=== PATIENT | male | born 1965 | race Caucasian/White ===

== ENCOUNTER → 2020-07-22 | Outpatient (CLI) | payer BC ==
--- NOTE | 2020-07-23 07:33 | CT ---
"EXAMINATION TYPE: CT abdomen wo con DATE OF EXAM: 07/22/2020 HISTORY: possible renal stones CT DLP: 362 mGycm. Automated Exposure Control for Dose Reduction was Utilized. TECHNIQUE: CT scan of the abdomen is performed without oral or IV contrast. Imaging includes the ent kenia pelvis despite only being ordered as an abdomen CT. COMPARISON: NONE FINDINGS: Within the limitations of a non-contrast study, the following observations are made. LUNG BASES: Mild left basilar linear scarring. Some coronary artery calcification is appreciated. LIVER/GB: No significant abnormality is appreciated. PANCREAS: No significant abnormality is seen. SPLEEN: No significant abnormality is seen. ADRENALS: No significant abnormality is seen. KIDNEYS: Right kidney shows cluster of roughly 5 calculi lower pole level measuring up to 12 mm long axis axial image 61. Left kidney shows approximately 60 calculi of varying size and shape including a dominant 19 mm calculus near upper pole calyx pelvic junction axial image 41. There is additional 14 mm calculus in proximal left ureter causing severe left-sided hydronephrosis. No right-sided hydrone phrosis is present. No intraluminal calculus in the poorly distended bladder. BOWEL: Incidental normal-appearing of appendix. GENITAL ORGANS: Prominent posterior left-sided mid zone calcifications an bilateral diffuse apical ca lcification in prostate gland measured upper limits of normal in size. LYMPH NODES: No greater than 1cm abdominal or pelvic lymph nodes are appreciated. OSSEOUS STRUCTURES: [id number] multilevel anterior spurring in the lumbar spine. OTHER: Moderate calcified plaque of the distal abdominal aorta extends into iliac branch vessels. Lenard e ectasia is present. No greater than 3.0 cm aneurysm. IMPRESSION: Significant bilateral nephrolithiasis. In addition there is 14 mm calculus proximal left ureter causing severe left-sided hydronephrosis. Urology follow-up advised. A Yellow level critical message alert has been initiated for Federica Ann MD via the [employer] | Critical Results System on 07/23/2020 7:30 AM. This message alert has been sent to Federica preston MD via the preferences provided by the clinician for the receipt of Radiology Critical Findings. Romulo essage ID [id number]."
== END | disposition home or self-care (01) ==
LOC: RADCTMAIN 16:28
PROVIDERS: ATTEND Internal Medicine
DX: N13.2 Hydronephrosis with renal and ureteral calculous obstruction (principal)
CPT/HCPCS: 74150

== ENCOUNTER → 2020-08-26 | Outpatient (CLI) | payer BC ==
[2020-08-26 12:43] LABS: Basophils # (A) 0.1 k/uL (0-0.2); Basophils % (A) 1 %; Eosinophils # (A) 0.2 k/uL (0-0.7); Eosinophils % (A) 2 %; HCT 47.2 % (39.0-53.0); HGB 16.1 gm/dL (13.0-17.5); Lymphocytes # (A) 2.9 k/uL (1.0-4.8); Lymphocytes % (A) 30 %; MCH 31.5 pg (25.0-35.0); MCV 92.5 fL (80.0-100.0); Mean Platelet Volume 7.8; Monocytes # (A) 0.8 k/uL (0-1.0); Monocytes % (A) 8 %; Neutrophils # (A) 5.3 k/uL (1.3-7.7); Neutrophils % (A) 56 %; Platelet Count 219 k/uL (150-450); RDW 12.7 % (11.5-15.5); WBC 9.5 k/uL (3.8-10.6)
[2020-08-26 13:02] LABS: African American GFR (CKD) >90 (>60 ml/min/1.73 sqM); Anion Gap 7 mmol/L; Blood Urea Nitrogen 14 mg/dL (9-20); Calcium 9.7 mg/dL (8.4-10.2); Carbon Dioxide 27 mmol/L (22-30); Chloride 104 mmol/L (98-107); Glucose 101 mg/dL (74-99); Non-African American GFR(CKD) >90 (>60 ml/min/1.73 sqM); Potassium 4.1 mmol/L (3.5-5.1); Sodium 138 mmol/L (137-145)
[2020-08-26 13:21] LABS: Appearance,Urine Clear (Clear); Bilirubin,Urine Negative (Negative); Blood,Urine Small (Negative); Color,Urine Yellow; Glucose,Urine (UA) Negative (Negative); Ketones,Urine Negative (Negative); Leukocyte Esterase,Urine Moderate (Negative); Mucus,Urine Rare /hpf; Nitrite,Urine Negative (Negative); PH, Urine 5.5 (5.0-8.0); Protein,Urine Negative (Negative); RBC,Urine 15 /hpf (0-5); Squamous Epithelial Cell,Urine <1 /hpf (0-4); Urobilinogen,Urine <2.0 mg/dL (<2.0); WBC,Urine 21 /hpf (0-5)
== END | disposition home or self-care (01) ==
LOC: LABPAT 10:32
PROVIDERS: ATTEND Urology
DX: Z01.818 Encounter for other preprocedural examination (principal); I10 Essential (primary) hypertension; N20.0 Calculus of kidney; R31.29 Other microscopic hematuria
CPT/HCPCS: 36415; 80048; 81001; 85025; 86850; 86900; 86901; 87086; 93005

== ENCOUNTER 2020-09-02 10:35 | Observation (INO) | payer BC ==
[2020-08-22 14:53] VITALS: BMI 25.2
[~2020-09-02 10:35] MED LIST: DEXAMETHASONE SOD PHOSPHATE 4 MG/ML 1 ML VIAL IV ONE; HYDROmorphone 0.5 MG/0.5 ML SYRINGE IVP PRN; LIDOCAINE 1% (10MG/ML) FOR IV START INTRADERMA PRN; ONDANSETRON 4 MG/2 ML VIAL IVP ONE; SCOPOLAMINE 1.5MG/72HR PATCH TRANSDERM ONE
--- NOTE | 2020-09-02 10:56 | XR ---
KUB HISTORY: Kidney stone Frontal KUB and [address] 07/22/2020 Multiple stones are present within the bilateral kidneys and likely the proximal left ureter region a s noted on prior CT, largest in the right kidney measures approximately 17 mm, largest in the proxima l left ureter measures proximate 16 mm. The upper pole region of the left kidney shows a desiccation measuring roughly 2 cm, there are at least 3 additional calcifications at the upper pole the left kid jaguar, too calcifications in the proximal left ureter are suspected, at least 3 calcifications in the r ight kidney. Prostate calcifications present. There are dense atherosclerotic calcifications noted in cidentally. IMPRESSION: Bilateral nephrolithiasis, proximal left ureterolithiasis.
[2020-09-02] MEDS: LACTATED RINGERS 1,000 ML IV SCH (11:30)
--- NOTE | 2020-09-02 11:55 | P.HPIHPCON ---
History of Present Illness H&P Date: 09/02/20 Chief Complaint: Kidney stones This is a 55-year-old male with history of bilateral renal stones. Of note he has a 1.9 cm left renal stone and 1.6 cm left ureteral stone. In addition to multiple smaller calculi on the left. Discussed the with him given his significant stone burden I recommend we proceed with percutaneous nephrolithotomy. Discussed with him the risk which includes but not limited to bleeding, infection, injury to the kidney, injury to the ureter, injury to nearby organs. Discussed with him given his significant stone burden he might require a second procedure to completely clear his stones on the left. He understood all the risk and agreed to proceed Consent for Procedure: I have explained the operation/procedure to the patient, including the risks, benefits, side effects, alternative therapies (including not receiving the proposed treatment or service), the likelihood of the patient achieving his/her goals, and potential recuperation problems for the procedure/sedation/analgesia, as well as any blood products, if indicated. I also explained to the patient the risks, benefits and side effects of the alternatives, as well as the risks related to not receiving the proposed procedure, care, treatment, or services. Past Medical History Past Medical History: Hyperlipidemia, Hypertension Additional Past Medical History / Comment(s): kidney stones History of Any Multi-Drug Resistant Organisms: None Reported Additional Past Surgical History / Comment(s): oral sx Past Anesthesia/Blood Transfusion Reactions: No Reported Reaction Smoking Status: Current every day smoker Medications and Allergies Home Medications Medication Instructions Recorded Confirmed Type Aspirin [Adult Low Dose Aspirin EC] 81 mg PO DAILY 08/22/20 08/22/20 History Atorvastatin [Lipitor] 10 mg PO HS 08/22/20 08/22/20 History atenoloL [Atenolol] 25 mg PO QAM 08/22/20 08/22/20 History Allergies Allergy/AdvReac Type Severity Reaction Status Date / Time No Known Allergies Allergy Verified 08/22/20 14:30 Surgical - Exam Vital Signs Temp Pulse Resp BP Pulse Ox 97.6 F 59 L 20 133/71 98 09/02/20 11:05 09/02/20 11:05 09/02/20 11:05 09/02/20 11:05 09/02/20 11:05 - General no distress, no pain - Eyes PERRL, normal ocular movement - ENT normal nares, normal mucosa - Respiratory normal expansion, normal respiratory effort - Abdomen Abdomen: soft, non tender - Psychiatric oriented to time, oriented to person, oriented to place Assessment and Plan Assessment: 55-year-old male with history of left-sided renal and ureteral stone -Or for percutaneous nephrolithotomy on the left
[2020-09-02] MEDS ORDERED: IOPAMIDOL-370 50ML BTL MISCELLANE ONE ×2 (12:21→15:17)
[2020-09-02] MEDS ORDERED: ACETAMINOPHEN TAB 325 MG TAB PO PRN (12:25)
[2020-09-02] MEDS ORDERED: MAG HYDROX/AL HYDROX/SIMETH 30 ML CUP PO PRN (12:25)
[2020-09-02] MEDS ORDERED: ONDANSETRON 4 MG/2 ML VIAL IVP PRN (12:25)
[2020-09-02] MEDS ORDERED: HYDROcodone/APAP 5-325MG 1 EACH TAB PO PRN (12:27)
[2020-09-02] MEDS ORDERED: LIDOCAINE 1% INJ 10MG/ML (20 ML MDV) ONE (12:52)
[2020-09-02] MEDS ORDERED: PROPOFOL 10 MG/ML 20 ML VIAL IV ONE (12:52)
[2020-09-02] MEDS ORDERED: GLYCOPYRROLATE 0.2 MG/ML 2 ML VIAL ONE (12:52)
[2020-09-02] MEDS ORDERED: MIDAZOLAM 2 MG/2 ML VIAL ONE (12:52)
[2020-09-02] MEDS ORDERED: ROCURONIUM 10 MG/ML (10 ML VIAL) IV ONE (12:52)
[2020-09-02] MEDS ORDERED: HYDROmorphone (PF) 1 MG/ML ONE (12:52)
[2020-09-02] MEDS ORDERED: fentaNYL (PF) 50 MCG/ML 2 ML AMP ONE (12:52)
[2020-09-02] MEDS ORDERED: ePHEDrine SULFATE/0.9% NACL/PF 50 MG/5 ML SYRINGE IV ONE (12:52)
[2020-09-02] MEDS ORDERED: NEOSTIGMINE 1 MG/ML 10 ML VIAL ONE (12:52)
[2020-09-02] MEDS ORDERED: SUCCINYLCHOLINE CHLORIDE 100 MG/5 ML SYR IV ONE (12:52)
[2020-09-02] MEDS ORDERED: BUPIVACAINE (PF) 0.5% 30 ML VIAL MISCELLANE ONE (15:00)
[2020-09-02] MEDS ORDERED: LACTATED RINGERS 1,000 ML IV ONE ×2 (15:10→17:25)
--- NOTE | 2020-09-02 17:48 | P.OP ---
Date of Procedure: 09/02/20 Preoperative Diagnosis: Left renal/ureteral stone Postoperative Diagnosis: Same Procedure(s) Performed: Cystoscopy, left ureteral catheterization, retrograde pyelogram, percutaneous nephrolithotomy, antegrade stent placement and nephrostomy tube placement Implants: 6-Senegalese by 28 cm stent Anesthesia: DALE Surgeon: Donald Mckeon Estimated Blood Loss (ml): 50 Pathology: other (Left renal/ureteral stone) Condition: stable Disposition: PACU Indications for Procedure: This is a 55-year-old male with history of bilateral renal stones. Of note he has a 1.9 cm left renal stone and 1.6 cm left ureteral stone. In addition to multiple smaller calculi on the left. Discussed the with him given his significant stone burden I recommend we proceed with percutaneous nephrolithotomy. Discussed with him the risk which includes but not limited to bleeding, infection, injury to the kidney, injury to the ureter, injury to nearby organs. Discussed with him given his significant stone burden he might require a second procedure to completely clear his stones on the left. He understood all the risk and agreed to proceed Operative Findings: Stone impacted in the left proximal ureter, large stones in the left upper pole, multiple smaller stones throughout the kidney Description of Procedure: The patient was brought to the operating room, general anesthesia was induced. He was prepped and draped in sterile fashion and placed in dorsal lithotomy position. Cystoscopy fitted with a 21-Senegalese sheath was inserted per urethra, cystoscopy was performed showed no abnormality within the bladder. Attention was then carried to the left ureteral orifice which was intubated with a sensor wire. I then advanced a sensor wire but could not advance it past the distal end of the stone multiple attempts was performed to try to advance the wire past the stone but the wire could not make the turn past the stone. At this time I attempted to advance a angled glide, but was still not able to advance the wire past the stone. At this time the wire was withdrawn and a 6-Senegalese open-ended catheter was inserted. Retrograde Polygram was performed which showed a mid ureteral stricture with dilation proximal to that, and then minimal contrast was seen past the stone. At this time a wire was advanced through the catheter up into the level of the stone and a 8-Senegalese occlusion balloon was passed over the wire, but resistance was met at the stricture I was not able to advance the catheter past the stricture. At this time the catheter was was maintained at the mid ureter. A 16-Senegalese Valdez catheter was placed and the catheter was secured to the Valdez. The patient was then positioned in prone, adequate padding was placed. Access was obtained by Mook Sellers see his part of dictation for that part of the case. After obtaining access A 0.035 sensor wire was advanced through the nephrostomy tube, the wire could not be advanced past upper calyx stone. At this time the sensor wire was curled in the upper pole. Next the 8-10 dilators was advanced over the sensor wire. an extra stiff wire was advanced through the ten dilator and into the upper pole. The tract was dilated using the balloon dilators, Next a 24-Senegalese access sheath was advanced over the balloon. The balloon was removed with the sheath in place. Next a rigid nephroscope was inserted. Large stone was encountered in the upper pole. This was fragmented using the ultrasound lithotripter, sizable fragments were removed and sent analysis. Multiple additional smaller stones were encountered throughout the kidney does were removed. At this time the rigid nephroscope was withdrawn and a flexible cystoscope was inserted through the sheath, at this time the UPJ was identified and the scope was advanced into the proximal ureter, the stone was visualized and it was impacted. With moderate difficulty I was able to advance a sensor wire past the stone and down into the ureter and into the bladder. Next using the holmium laser the stone was fragmented into small fragments, of note there was significant edema at the site of stone impaction in the ureter was edematous and scarred secondary to stone. Sizable fragments were removed. Next I attempted to advance the scope past the area of impaction distally but I was not able to advance the scope. At this time the the flexibile cystoscope was withdrawn, and the rigid nephroscope was inserted, repeat renoscopy showed no sizable fragments or injury to the kidney. Next a 6- Senegalese by 28 cm stent was passed over the wire, the the distal curl was visualized on fluoroscopy in the bladder, the proximal curl was visualized using the nephroscope. Next a second wire was placed into the kidney, and a 10- Senegalese nephrostomy tube was placed. The nephrostomy tube was secured to the skin using 3-0 nylon. An additional 3-0 Vicryl was placed in the skin to close the skin defect. A 15 mL's of local anesthetic was infiltrated. Antegrade nephrostogram was performed at the end of the case which showed no evidence of contrast extravasation or any additional filling defect, additionally no radiopaque densities were visualized. At this point the patient was placed back in supine he was awakened from anesthesia and taken to recovery in stable condition
[2020-09-02] MEDS: DEXTROSE 5%-0.45% NACL 1,000 ML IV SCH ×2 (18:21→19:21)
[2020-09-02] MEDS: HEPARIN SODIUM,PORCINE 5,000 UNIT/ML 1 ML VIAL SQ SCH (18:37)
[2020-09-02] MEDS: KETOROLAC 15 MG/ML 1 ML VIAL IVP SCH (19:20)
[2020-09-02] MEDS ORDERED: ATORVASTATIN 10 MG TAB PO SCH (21:00)
[2020-09-03] MEDS: KETOROLAC 15 MG/ML 1 ML VIAL IVP SCH ×3 (00:17→11:52)
[2020-09-03] MEDS: HEPARIN SODIUM,PORCINE 5,000 UNIT/ML 1 ML VIAL SQ SCH ×2 (00:18→09:02)
[2020-09-03] MEDS: LACTATED RINGERS 1,000 ML IV SCH (04:23)
[2020-09-03] MEDS: DEXTROSE 5%-0.45% NACL 1,000 ML IV SCH (04:24)
[2020-09-03 06:50] LABS: HCT 39.8 % (39.0-53.0); HGB 13.9 gm/dL (13.0-17.5); MCH 31.9 pg (25.0-35.0); MCHC 34.8 g/dL (31.0-37.0); MCV 91.7 fL (80.0-100.0); Platelet Count 170 k/uL (150-450); RBC 4.35 m/uL (4.30-5.90); RDW 12.7 % (11.5-15.5); WBC 15.1 k/uL (3.8-10.6)
--- NOTE | 2020-09-03 07:18 | FL ---
EXAMINATION TYPE: FL Perc Nephrostomy New Access, FL urography retrograde DATE OF EXAM: 09/02/2020 COMPARISON: CT 07/22/2020 HISTORY: Hydronephrosis, ureteral obstruction or nephrolithiasis. PROCEDURE: Maximal barrier technique was utilized, hand hygiene obtained with soap and water and alcohol-based h and rub. The skin overlying the left kidney was localized using fluoroscopy and the overlying skin p repped and draped. Skin luzma was made with a scalpel. Access was attempted under fluoroscopy, follow ing placement of a ureteral occlusion balloon by the referring clinician and instillation of air in t he renal collecting system with a 21-gauge needle without success, ultrasound was called to the room and ultrasound guidance was used with maximal barrier technique to access the posterior upper pole th e left kidney. A 0.018 inch wire was advanced. The access site was dilated , access site was upsize d, safety wire deployed and subsequently a sheath was advanced following dilation with balloon along the tract. The patient underwent nephrolithotomy by the referring clinician. The patient remained i n stable condition without complication. The patient was discharged to observation in the care of an esthesia. 31 minutes 20 seconds fluoroscopy time, 4 images document the procedure IMPRESSION: STATUS POST NEPHROSTOMY PLACEMENT FOR NEPHROLITHOTOMY WITH FLUOROSCOPIC GUIDANCE. THIS PROCEDURE PER FORMED BY THE UNDERSIGNED.
--- NOTE | 2020-09-03 08:46 | P.DS ---
Providers Date of admission: 09/03/20 06:03 Expected date of discharge: 09/03/20 Attending physician: Donald Mckeon MD Primary care physician: Seth Hobbs [facility] Course: On the day of admission, the patient underwent a left percutaneous nephrolithotomy. The perioperative course was unremarkable. On the first postoperative day, he was tolerating diet and stated that his pain was controlled. He was afebrile with stable vital signs. The Valdez catheter was draining clear yellow urine. The left nephrostomy tube was draining urine which was only faintly blood-tinged. Procedures: Left PCNL on 09/02/2020. Patient Condition at Discharge: Good Plan - Discharge Summary Discharge Rx Participant: No New Discharge Prescriptions: New HYDROcodone/APAP 5-325MG [[place] 5-325] 1 - 2 tab PO Q4HR PRN #10 tab PRN Reason: Moderate To Severe Pain No Action atenoloL [Atenolol] 25 mg PO QAM Atorvastatin [Lipitor] 10 mg PO HS Aspirin [Adult Low Dose Aspirin EC] 81 mg PO DAILY Discharge Medication List Aspirin [Adult Low Dose Aspirin EC] 81 mg PO DAILY 08/22/20 [History] Atorvastatin [Lipitor] 10 mg PO HS 08/22/20 [History] atenoloL [Atenolol] 25 mg PO QAM 08/22/20 [History] HYDROcodone/APAP 5-325MG [[place] 5-325] 1 - 2 tab PO Q4HR PRN #10 tab 09/03/20 [Rx] Follow up Appointment(s)/Referral(s): Donald Mckeon MD [STAFF PHYSICIAN] - 1 Week Activity/Diet/Wound Care/Special Instructions: Discharge home with nephrostomy tube. Instruct patient to empty drainage bag. Diet as tolerated. Drink plenty of fluids. Discharge Disposition: HOME SELF-CARE
[2020-09-03] MEDS ORDERED: atenoloL 25 MG TAB PO SCH (09:00)
[2020-09-03 09:54] LABS: Anion Gap 9.8 mmol/L (4.00-12.00); BUN/Creat Ratio 16.67 Ratio (12.00-20.00); Calcium 8.7 mg/dL (8.7-10.3); Carbon Dioxide 23.2 mmol/L (21.6-31.8); Non-African American GFR(CKD) 95.8 (60.0-200.0); Potassium 3.5 mmol/L (3.5-5.5)
[2020-09-03 14:57] VITALS: BP 159/88; PULSE 58; RESP 20; TEMP 98
--- NOTE | 2020-09-04 13:16 | US ---
Ultrasound guidance utilized for percutaneous nephrostomy access, see dictated report 09/02/2020
== END 2020-09-03 16:24 | disposition home or self-care (01) ==
LOC: OR 10:35 → 4SSUR 17:53 → OR 09-03 06:19
PROVIDERS: ADMIT Urology; ATTEND Urology
DX: N20.2 Calculus of kidney with calculus of ureter (principal); N13.5 Crossing vessel and stricture of ureter without hydronephrosis; E78.5 Hyperlipidemia, unspecified; I10 Essential (primary) hypertension; K08.89 Other specified disorders of teeth and supporting structures; F17.210 Nicotine dependence, cigarettes, uncomplicated; K21.9 Gastro-esophageal reflux disease without esophagitis; Z87.442 Personal history of urinary calculi; Z98.890 Other specified postprocedural states; Z79.82 Long term (current) use of aspirin; Z79.899 Other long term (current) drug therapy
CPT/HCPCS: 52005; 50080; 80048; 85027; 82365; 74420; 50432; 74018; 76942; G0378; C2625; C1769 ×6; C2628 ×2; C1729 ×2; C1758; C1894; J2250; J1644; J1100; J2710; J2405; J2001; J3010; J1170; J1885 ×2; J0330; J2704; Q9967; 86850; 86900; 86901

== ENCOUNTER → 2020-09-13 | Outpatient (CLI) | payer BC ==
--- NOTE | 2020-09-13 12:39 | XR ---
KUB HISTORY: N 20.0 Frontal KUB and 2 images correlated to prior KUB 09/02/2020 There is a double-J stent present on the left. Calcifications over the right lower kidney are again s een. Multiple calcifications are again noted over the left kidney, the largest calcified lesion seen on prior exam is no longer seen however. Residual calcifications measure approximately 6 to 7 mm, 8 m m the midpole, however pole shows fragmented calcifications, largest measures 6 mm. Vascular calcific ations are present within the pelvis as well as prostatic calcifications. IMPRESSION: Probable interval stone removal with residual bilateral nephrolithiasis.
== END | disposition home or self-care (01) ==
LOC: RADXRMAIN 11:04
PROVIDERS: ATTEND Urology
DX: N20.0 Calculus of kidney (principal)
CPT/HCPCS: 74018

== ENCOUNTER → 2020-09-23 | Outpatient (CLI) | payer BC ==
[2020-09-23 13:44] LABS: Basophils # (A) 0.2 k/uL (0-0.2); Basophils % (A) 2 %; Eosinophils # (A) 0.2 k/uL (0-0.7); Eosinophils % (A) 2 %; HCT 48.8 % (39.0-53.0); HGB 16.7 gm/dL (13.0-17.5); Lymphocytes # (A) 3.3 k/uL (1.0-4.8); Lymphocytes % (A) 31 %; MCH 31.5 pg (25.0-35.0); MCHC 34.2 g/dL (31.0-37.0); MCV 92.1 fL (80.0-100.0); Mean Platelet Volume 7.5; Monocytes # (A) 0.7 k/uL (0-1.0); Monocytes % (A) 7 %; Neutrophils % (A) 57 %; Platelet Count 281 k/uL (150-450); RDW 12.3 % (11.5-15.5); WBC 10.6 k/uL (3.8-10.6)
[2020-09-23 14:07] LABS: African American GFR (CKD) >90 (>60 ml/min/1.73 sqM); Anion Gap 10 mmol/L; Blood Urea Nitrogen 15 mg/dL (9-20); Calcium 9.9 mg/dL (8.4-10.2); Carbon Dioxide 24 mmol/L (22-30); Chloride 103 mmol/L (98-107); Glucose 100 mg/dL (74-99); Non-African American GFR(CKD) >90 (>60 ml/min/1.73 sqM); Potassium 4.3 mmol/L (3.5-5.1); Sodium 137 mmol/L (137-145)
[2020-09-23 14:20] LABS: Appearance,Urine Cloudy (Clear); Bilirubin,Urine Negative (Negative); Blood,Urine Moderate (Negative); Color,Urine Yellow; Glucose,Urine (UA) Negative (Negative); Ketones,Urine Negative (Negative); Leukocyte Esterase,Urine Large (Negative); Mucus,Urine Rare /hpf; Nitrite,Urine Negative (Negative); PH, Urine 5.5 (5.0-8.0); Protein,Urine 2+ (Negative); RBC,Urine 45 /hpf (0-5); Specific Gravity,Urine 1.021 (1.001-1.035); Squamous Epithelial Cell,Urine <1 /hpf (0-4); Urobilinogen,Urine <2.0 mg/dL (<2.0); WBC,Urine >182 /hpf (0-5)
== END | disposition home or self-care (01) ==
LOC: LABPAT 12:05
PROVIDERS: ATTEND Urology
DX: Z01.818 Encounter for other preprocedural examination (principal); N20.0 Calculus of kidney
CPT/HCPCS: 36415; 80048; 81001; 85025; 86850; 86900; 86901; 87086

== ENCOUNTER 2020-09-30 10:54 | Day surgery (SDC) | payer BC ==
[2020-09-25 12:56] VITALS: BMI 24.8
--- NOTE | 2020-09-30 08:40 | P.HPIHPCON ---
History of Present Illness H&P Date: 09/30/20 This is a 55 yo male with hx of bilateral nephrolithiasis. He is S/P Left PCNL on 09/02/2020. He presents today to address his right sided stone burden. CT in 07/2020 showed 5 large calculi in the lower pole of the right kidney larges measuring 13 mm. discussed wit him given his significant stone burden the option of PCNL was discussed with him. Discussed with him the risk which includes but not limited to bleeding, infection, injury to the kidney and ureter. Discussed also potential of injury to nearby organs which include the lung, liver, bowel. Discussed also potential of needing additional proceudres. Discussed with him will obtain a KUB in am, if minimal or no residual stone on the left then will remove the stent. He understood all risks and agreed to proceed with right sided PCNL and possibile stent removal on left Consent for Procedure: I have explained the operation/procedure to the patient, including the risks, benefits, side effects, alternative therapies (including not receiving the proposed treatment or service), the likelihood of the patient achieving his/her goals, and potential recuperation problems for the procedure/sedation/analgesia, as well as any blood products, if indicated. I also explained to the patient the risks, benefits and side effects of the alternatives, as well as the risks related to not receiving the proposed procedure, care, treatment, or services. Past Medical History Past Medical History: Hyperlipidemia, Hypertension Additional Past Medical History / Comment(s): kidney stones History of Any Multi-Drug Resistant Organisms: None Reported Additional Past Surgical History / Comment(s): oral sx, lt perc. nephostolithostomy Past Anesthesia/Blood Transfusion Reactions: No Reported Reaction Smoking Status: Current every day smoker - Past Family History Father Family Medical History: CVA/TIA, Myocardial Infarction ([place]) Medications and Allergies Home Medications Medication Instructions Recorded Confirmed Type Aspirin [Adult Low Dose Aspirin EC] 81 mg PO DAILY 08/22/20 09/25/20 History Atorvastatin [Lipitor] 10 mg PO HS 08/22/20 09/25/20 History atenoloL [Atenolol] 25 mg PO QAM 08/22/20 09/25/20 History Allergies Allergy/AdvReac Type Severity Reaction Status Date / Time No Known Allergies Allergy Verified 09/25/20 12:49 Surgical - Exam - General well developed, well nourished, no distress, moderate pain - Eyes PERRL, normal ocular movement - Respiratory normal expansion, normal respiratory effort - Abdomen Abdomen: soft, non tender - Psychiatric oriented to time, oriented to person, oriented to place Assessment and Plan Assessment: -OR for right sided PCNL possible left stent removal
[~2020-09-30 10:54] MED LIST changes: +GENTAMICIN 120 MG in SODIUM CHLORIDE 0.9% 100 ML IVPB PRN; -HYDROmorphone 0.5 MG/0.5 ML SYRINGE IVP PRN; -LIDOCAINE 1% (10MG/ML) FOR IV START INTRADERMA PRN; +MIDAZOLAM 2 MG/2 ML VIAL IV PRN
--- NOTE | 2020-09-30 11:16 | XR ---
EXAMINATION TYPE: XR KUB DATE OF EXAM: 09/30/2020 COMPARISON: 09/13/2020 HISTORY: Preop TECHNIQUE: One view abdominal series FINDINGS: The osseous structures are intact. The bowel gas pattern is nonspecific. Left-sided ureteral stent i s seen with multiple proximal ureteral and left renal calculi. Calcifications in the pelvis are nonsp ecific. There are 5 calcifications overlying the right kidney the largest measuring 1.6 cm. Hypertrophic and degenerative change of the spine. IMPRESSION: 1. Bilateral nephrolithiasis with left ureteral calculi noted..
[2020-09-30] MEDS: LACTATED RINGERS 1,000 ML IV SCH (11:36)
[2020-09-30] MEDS ORDERED: PROPOFOL 10 MG/ML 20 ML VIAL IV ONE (12:07)
[2020-09-30] MEDS ORDERED: HYDROmorphone (PF) 1 MG/ML ONE (12:07)
[2020-09-30] MEDS ORDERED: SUCCINYLCHOLINE CHLORIDE 100 MG/5 ML SYR IV ONE (12:07)
[2020-09-30] MEDS ORDERED: fentaNYL (PF) 50 MCG/ML 2 ML AMP ONE (12:07)
[2020-09-30] MEDS ORDERED: ROCURONIUM 10 MG/ML (5 ML VIAL) IV ONE (12:07)
[2020-09-30] MEDS ORDERED: LIDOCAINE 1% INJ 10MG/ML (20 ML MDV) ONE (12:07)
[2020-09-30] MEDS ORDERED: MIDAZOLAM 2 MG/2 ML VIAL ONE (12:07)
[2020-09-30] MEDS ORDERED: GLYCOPYRROLATE 0.2 MG/ML 2 ML VIAL ONE (12:07)
[2020-09-30] MEDS ORDERED: NEOSTIGMINE 1 MG/ML 10 ML VIAL ONE (12:07)
[2020-09-30] MEDS ORDERED: IOPAMIDOL-370 50ML BTL MISCELLANE ONE (12:34)
[2020-09-30] MEDS ORDERED: LACTATED RINGERS 1,000 ML IV ONE (13:47)
--- NOTE | 2020-09-30 15:28 | FL ---
EXAMINATION TYPE: FL Perc Nephrostomy New Access DATE OF EXAM: 09/30/2020 COMPARISON: NONE HISTORY: Right renal calculi Procedure had been discussed with the patient by Dr. Mckeon, risks, benefits, alternatives, were di scussed and any questions were answered. Informed consent was obtained. The patient was in a semipr one position prepped and draped on the OR table in the usual sterile fashion. Utilizing a 15 cm andrew th Chiba needle a single pass was made into a mid pole posterior calyx under fluoroscopic guidance. An 0.018 guidewire is passed through the needle and there was placement of a 6-Cymro catheter sheath system. There was conversion to a 0.035 system was performed with passage of a guidewire into the ureter utilizing a directional catheter. A second safety wire was placed. Remaining portion of proc edure performed by . Approximately 7 minutes and 5 of fluoroscopy was provided. IMPRESSION: 1. Successful intraoperative right nephrostomy prior to nephrolithotomy.
[2020-09-30] MEDS: HYDROmorphone 0.5 MG/0.5 ML SYRINGE IVP PRN ×2 (15:52→15:58)
[2020-09-30] MEDS ORDERED: ONDANSETRON 4 MG/2 ML VIAL IVP PRN (15:52)
[2020-09-30] MEDS ORDERED: ACETAMINOPHEN TAB 325 MG TAB PO PRN (15:52)
--- NOTE | 2020-09-30 16:10 | P.OP ---
Date of Procedure: 09/30/20 Preoperative Diagnosis: Right renal calculi Postoperative Diagnosis: Same Procedure(s) Performed: Cystoscopy, right ureteral catheterization, retrograde pyelogram, antegrade nephrostogram percutaneous nephrolithotomy, nephrostomy tube placement Implants: None Anesthesia: RHEAA Surgeon: Donald Mckeon Estimated Blood Loss (ml): 150 Pathology: other (right renal calculi) Condition: stable Disposition: PACU Indications for Procedure: This is a 55 yo male with hx of bilateral nephrolithiasis. He is S/P Left PCNL on 09/02/2020. He presents today to address his right sided stone burden. CT in 07/2020 showed 5 large calculi in the lower pole of the right kidney larges measuring 13 mm. discussed wit him given his significant stone burden the option of PCNL was discussed with him. Discussed with him the risk which includes but not limited to bleeding, infection, injury to the kidney and ureter. Discussed also potential of injury to nearby organs which include the lung, liver, bowel. Discussed also potential of needing additional proceudres. KUB prior to surgery showed some evidence of stone along the course of the stent. Discussed with him given the finding of stones along the left stent we'll hold off on removing the stent on the left side today, and we'll proceed in left-sided ureteroscopy to address his stone burden on the left prior to removing the stent. He understood all the risk and agreed to proceed with right-sided percutaneous ne phrolithotomy, we will plan on proceeding with left-sided ureteroscopy 2-3 weeks Operative Findings: Multiple stones within the right lower pole Description of Procedure: The patient was brought to the operating room, general anesthesia was induced. He was prepped and draped in sterile fashion and placed in supine position. Cystoscopy fitted with a 21-Costa Rican sheath was inserted per urethra, cystoscopy was performed showed no abnormality within the bladder. Attention was then carried to the right ureteral orifice which was intubated with a sensor wire. I then advanced a sensor wire to the renal pelvis, next the scope was removed the wire in place. Next the ureteral balloon dilator was passed over the wire. Next A 16-Costa Rican Valdez catheter was placed and the catheter was secured to the Valdez. The patient was then positioned in prone, adequate padding was placed. Access was obtained by Dr. Basilio. We attempted to obtain access through the lower calyx, But stones were impacted in the lower calyx, and a wire could not be advanced into the renal pelvis. Thus access was obtained into the mid calyx, of note the access was above the 12th rib. After obtaining access A 0.035 sensor wire was advanced through the nephrostomy needle and down the ureter. Next an 8-10 dilators was advanced over the sensor wire. an extra stiff wire was advanced through the ten dilator and down the ureter. The tract was dilated using the balloon dilators, Next a 24-Costa Rican access sheath was advanced over the balloon. The balloon was removed with the sheath in place. Next a rigid nephroscope was inserted. Stone was visualized in the lower calyx the stone was fragmented using the ultrasound lithotripter, sizable fragments were removed and sent analysis, multiple smaller stones were seen in the lower calyx beyond the larger stones, those stones were also removed. Of note there was an approximately 5 mm radiopaque density in the lower calyx. I attempted to get to that radiopaque density using the rigid nephroscope and the flexible cystoscope but the density appeared to be either parenchymal stone or stone within a diverticulum, but of note no neck to the diverticulum could be visualized. Additionally antegrade nephrostogram was performed which showed no connection between the collecting system and the radiopaque density repeat nephroscopy showed no evidence of sizable fragments, or injury to the kidney. Flexible cystoscope was advanced down the proximal ureter which showed no stones within the ureter. Next a 10-C[place] Rican nephrostomy tube was placed over the wire . Antegrade nephrostogram confirmed that the nephrostomy tube is within the kidney, and showed no evidence of contrast extravesiation The nephrostomy tube was secured to the skin using 3-0 nylon. An additional 3-0 Vicryl was placed in the skin to close the skin defect. A 15 mL's of local anesthetic was infiltrated. At this point the patient was placed back in supine and he was awakened from anesthesia and taken to recovery in stable condition
[2020-09-30] MEDS ORDERED: SODIUM CHLORIDE 0.9% 1,000 ML IV ONE (17:48)
[2020-09-30] MEDS: DEXTROSE 5%-0.45% NACL 1,000 ML IV SCH (18:34)
[2020-09-30] MEDS: HYDROcodone/APAP 5-325MG 1 EACH TAB PO PRN ×2 (18:40→22:34)
[2020-09-30] MEDS: KETOROLAC 15 MG/ML 1 ML VIAL IVP SCH (18:41)
[2020-09-30] MEDS: HEPARIN SODIUM,PORCINE 5,000 UNIT/ML 1 ML VIAL SQ SCH (18:41)
[2020-09-30] MEDS: SODIUM CHLORIDE 0.9% 1,000 ML IV SCH (18:42)
[2020-09-30] MEDS ORDERED: ATORVASTATIN 10 MG TAB PO SCH (21:00)
[2020-09-30] MEDS: NITROFURANTOIN MONOHYD/M-CRYST 100 MG CAP PO SCH (21:05)
[2020-10-01] MEDS: KETOROLAC 15 MG/ML 1 ML VIAL IVP SCH ×3 (01:11→12:17)
[2020-10-01] MEDS: HEPARIN SODIUM,PORCINE 5,000 UNIT/ML 1 ML VIAL SQ SCH ×2 (01:11→08:00)
[2020-10-01] MEDS: HYDROcodone/APAP 5-325MG 1 EACH TAB PO PRN ×2 (02:28→07:59)
[2020-10-01] MEDS: DEXTROSE 5%-0.45% NACL 1,000 ML IV SCH ×2 (03:13→13:11)
[2020-10-01] MEDS: MAG HYDROX/AL HYDROX/SIMETH 30 ML CUP PO PRN ×2 (04:34→14:55)
[2020-10-01] MEDS: SODIUM CHLORIDE 0.9% 1,000 ML IV SCH (06:00)
[2020-10-01] MEDS: LACTATED RINGERS 1,000 ML IV SCH (07:16)
[2020-10-01] MEDS: NITROFURANTOIN MONOHYD/M-CRYST 100 MG CAP PO SCH (08:00)
[2020-10-01] MEDS ORDERED: atenoloL 25 MG TAB PO SCH (09:00)
[2020-10-01 11:50] LABS: HCT 38.7 % (39.6-50.0); HGB 13.1 g/dL (13.0-17.0); MCHC 33.9 g/dL (32.0-37.0); MCV 91.5 fL (80.0-97.0); Mean Platelet Volume 11.1 fL (9.5-12.2); Platelet Count 215 X 10*3/uL (140-440); RBC 4.23 X 10*6/uL (4.40-5.60); WBC 16.96 X 10*3/uL (4.50-10.00)
[2020-10-01 12:45] VITALS: BP 133/63; PULSE 87; RESP 15; TEMP 98.1
--- NOTE | 2020-10-01 17:16 | P.DS ---
Providers Attending physician: Donald Mckeon MD Primary care physician: [facility] Course: This is a 55 yo male with hx of right sided renal Calculi, He underwent right sided PCNL, please see op note dated 09/30 for surgery details. He was admitted to the hospital post operatively. He had an uneventful post operative course, his magdaleno was removed on POD #1. He was discharged home with nephrostomy tube, he will f/u in 1 week. At time of discharge he was tolerating a diet, ambulating and pain was well controlled. Plan - Discharge Summary Discharge Rx Participant: No New Discharge Prescriptions: New HYDROcodone/APAP 5-325MG [[place] 5-325] 1 tab PO Q4HR PRN 3 Days #15 tab PRN Reason: Pain Ibuprofen 600 mg PO Q8H PRN #20 tab PRN Reason: Pain No Action atenoloL [Atenolol] 25 mg PO QAM Atorvastatin [Lipitor] 10 mg PO HS Aspirin [Adult Low Dose Aspirin EC] 81 mg PO DAILY Nitrofurantoin Macrocrystal [Nitrofurantoin] PO BID Discharge Medication List Aspirin [Adult Low Dose Aspirin EC] 81 mg PO DAILY 08/22/20 [History] Atorvastatin [Lipitor] 10 mg PO HS 08/22/20 [History] atenoloL [Atenolol] 25 mg PO QAM 08/22/20 [History] Nitrofurantoin Macrocrystal [Nitrofurantoin] PO BID 09/30/20 [History] HYDROcodone/APAP 5-325MG [[place] 5-325] 1 tab PO Q4HR PRN 3 Days #15 tab 10/01/20 [Rx] Ibuprofen 600 mg PO Q8H PRN #20 tab 10/01/20 [Rx] Follow up Appointment(s)/Referral(s): Donald Mckeon MD [STAFF PHYSICIAN] - 10/07/20 11:00 am Patient Instructions/Handouts: Hydrocodone/Acetaminophen (By mouth), Ibuprofen (By mouth), Nephrostomy Tube Care (DC) Activity/Diet/Wound Care/Special Instructions: Increase fluid intake No heavy lifting or straining You may see some blood in the urine You may shower, but no baths Discharge Disposition: HOME SELF-CARE
--- NOTE | 2020-10-04 07:47 | CDI ---
Date: 10.04.20 CDS/Packing Room Inspector Name: Danna Jacobo Phone: If any questions, call Brit Jesus Paramedic Supervisor at [phone] Patient Name: Kristian Liu Admit Date 09.30.20 Discharge Date: 10.01.20 ATTENTION: The [facility] Coding Staff appreciate your assistance in clarifying documentation. Please respond to the clarification below the line at the bottom and electronically sign. The [facility] Coding staff will review the response and follow-up if needed. Please note: Queries are made part of the Legal Health Record. If you have any questions, please contact the Paramedic Supervisor. Dear Dr. Mckeon In order to code to the greatest specificity and for the greatest reimbursement I need the following information: Please specify the size of the stone you fragmented __up to 2 cm __over 2 cm Thank you for your kind consideration. Up to 2 cm MTDD
== END 2020-10-01 15:54 | disposition home or self-care (01) ==
LOC: OR 10:54 → 5NMEDONC 17:40 → OR 10-01 15:54
PROVIDERS: ATTEND Urology
DX: N20.0 Calculus of kidney (principal); E78.5 Hyperlipidemia, unspecified; I10 Essential (primary) hypertension; K08.109 Complete loss of teeth, unspecified cause, unspecified class; F17.210 Nicotine dependence, cigarettes, uncomplicated; K21.9 Gastro-esophageal reflux disease without esophagitis; Z98.890 Other specified postprocedural states; Z87.442 Personal history of urinary calculi; Z79.82 Long term (current) use of aspirin; Z79.899 Other long term (current) drug therapy; Z96.0 Presence of urogenital implants; Z82.3 Family history of stroke; Z82.49 Family history of ischemic heart disease and other diseases of the circulatory system
CPT/HCPCS: 85027; 82365; 50432; 74018; 50080; 52005; C2628; C1769 ×4; C1729 ×4; C1894; J2250; J1644 ×2; J1100; J2710; J0690; J2405; J2001; J3010; J1580; J1170 ×2; J1885 ×2; J0330; J2704; Q9967; 86850; 86900; 86901

== ENCOUNTER → 2020-10-07 | Outpatient (CLI) | payer BC ==
[2020-10-07 12:47] LABS: Basophils # (A) 0.1 k/uL (0-0.2); Basophils % (A) 1 %; Eosinophils # (A) 0.3 k/uL (0-0.7); Eosinophils % (A) 3 %; HCT 41.5 % (39.0-53.0); Lymphocytes # (A) 2.2 k/uL (1.0-4.8); Lymphocytes % (A) 24 %; MCH 31.6 pg (25.0-35.0); MCHC 33.7 g/dL (31.0-37.0); MCV 93.8 fL (80.0-100.0); Mean Platelet Volume 7.5; Monocytes # (A) 0.8 k/uL (0-1.0); Monocytes % (A) 8 %; Neutrophils # (A) 5.6 k/uL (1.3-7.7); Neutrophils % (A) 62 %; Platelet Count 217 k/uL (150-450); RBC 4.42 m/uL (4.30-5.90); RDW 12.6 % (11.5-15.5); WBC 9.1 k/uL (3.8-10.6)
[2020-10-07 13:04] LABS: African American GFR (CKD) >90 (>60 ml/min/1.73 sqM); Anion Gap 7 mmol/L; Blood Urea Nitrogen 14 mg/dL (9-20); Calcium 9.9 mg/dL (8.4-10.2); Carbon Dioxide 29 mmol/L (22-30); Chloride 104 mmol/L (98-107); Glucose 102 mg/dL (74-99); Non-African American GFR(CKD) >90 (>60 ml/min/1.73 sqM); Potassium 4.7 mmol/L (3.5-5.1); Sodium 140 mmol/L (137-145)
[2020-10-07 13:05] LABS: Appearance,Urine Clear (Clear); Bilirubin,Urine Negative (Negative); Blood,Urine Large (Negative); Color,Urine Yellow; Glucose,Urine (UA) Negative (Negative); Ketones,Urine Negative (Negative); Leukocyte Esterase,Urine Large (Negative); Mucus,Urine Rare /hpf; Nitrite,Urine Negative (Negative); PH, Urine 6.5 (5.0-8.0); Protein,Urine 1+ (Negative); RBC,Urine >182 /hpf (0-5); Specific Gravity,Urine 1.015 (1.001-1.035); Urobilinogen,Urine <2.0 mg/dL (<2.0); WBC,Urine 9 /hpf (0-5)
== END | disposition home or self-care (01) ==
LOC: LABPAT 12:07
PROVIDERS: ATTEND Urology
DX: Z01.818 Encounter for other preprocedural examination (principal); N20.1 Calculus of ureter; R31.29 Other microscopic hematuria
CPT/HCPCS: 36415; 80048; 81001; 85025; 87086

== ENCOUNTER 2020-10-18 11:21 | Day surgery (SDC) | payer BC ==
[2020-10-11 15:57] VITALS: BMI 24.3
[~2020-10-18 11:21] MED LIST changes: -GENTAMICIN 120 MG in SODIUM CHLORIDE 0.9% 100 ML IVPB PRN; +HYDROmorphone 0.5 MG/0.5 ML SYRINGE IVP PRN; +LACTATED RINGERS 1,000 ML IV SCH
[2020-10-18] MEDS ORDERED: IV FLUID CONTINUATION 1,000 ML IV ONE (12:24)
[2020-10-18] MEDS ORDERED: LIDOCAINE 1% (10MG/ML) FOR IV START INTRADERMA ONE (12:24)
[2020-10-18 12:32] VITALS: RESP 16
[2020-10-18] MEDS ORDERED: FAMOTIDINE 20 MG/2 ML VIAL IVP ONE (12:33)
--- NOTE | 2020-10-18 12:50 | P.HPIHPCON ---
History of Present Illness H&P Date: 10/18/20 Chief Complaint: left ureteral stone 55-year-old male with history of bilateral renal stones, left ureteral stone. He is Status post bilateral PCNL. He had a postop image that showed some residual stones along the stent on the left side. Discussed with him given this finding we will proceed with left-sided ureteroscopy prior to stent removal. Of note he's also been complaining of mild right flank pain, discussed with him we'll do right-sided retrograde pyelogram to rule out any residual stones on the right side, and if there is we'll address those at that time. Discussed with him risk of surgery which includes but not limited to bleeding, infection, injury to ureter. He understood all the risk and agreed to proceed with cystoscopy, bilateral retrograde pyelogram, left ureteroscopy with holmium laser lithotripsy, possible right ureteroscopy with holmium laser lithotripsy and stent placement Consent for Procedure: I have explained the operation/procedure to the patient, including the risks, benefits, side effects, alternative therapies (including not receiving the proposed treatment or service), the likelihood of the patient achieving his/her goals, and potential recuperation problems for the procedure/sedation/analgesia, as well as any blood products, if indicated. I also explained to the patient the risks, benefits and side effects of the alternatives, as well as the risks related to not receiving the proposed procedure, care, treatment, or services. Past Medical History Past Medical History: Hyperlipidemia, Hypertension Additional Past Medical History / Comment(s): kidney stones History of Any Multi-Drug Resistant Organisms: None Reported Additional Past Surgical History / Comment(s): lithotripsy, cystoscopy, oral sx Past Anesthesia/Blood Transfusion Reactions: No Reported Reaction Smoking Status: Current every day smoker Medications and Allergies Home Medications Medication Instructions Recorded Confirmed Type Atorvastatin [Lipitor] 10 mg PO HS 08/22/20 10/18/20 History atenoloL [Atenolol] 25 mg PO QAM 08/22/20 10/18/20 History Allergies Allergy/AdvReac Type Severity Reaction Status Date / Time No Known Allergies Allergy Verified 10/11/20 15:53 Surgical - Exam - General well developed, well nourished, no distress, no pain - Eyes PERRL, normal ocular movement - ENT normal nares, normal mucosa - Respiratory normal expansion, normal respiratory effort - Abdomen Abdomen: soft, non tender - Psychiatric oriented to time, oriented to person, oriented to place Assessment and Plan Assessment: 55 yo male with left sided ureteral stone and right flank pain Plan: OR cystoscopy, bilateral retrograde pyelogram, left ureteroscopy with holmium laser lithotripsy, possible right ureteroscopy with holmium laser lithotripsy and stent placemen
[2020-10-18] MEDS ORDERED: MIDAZOLAM 2 MG/2 ML VIAL ONE (13:10)
[2020-10-18] MEDS ORDERED: HYDROmorphone (PF) 1 MG/ML ONE (13:10)
[2020-10-18] MEDS ORDERED: fentaNYL (PF) 50 MCG/ML 2 ML AMP ONE (13:10)
[2020-10-18] MEDS ORDERED: LIDOCAINE 1% INJ 10MG/ML (20 ML MDV) ONE (13:10)
[2020-10-18] MEDS ORDERED: PROPOFOL 10 MG/ML 20 ML VIAL IV ONE (13:10)
[2020-10-18] MEDS ORDERED: PHENYLEPHRINE-0.9% NACL SYG 1,000 MCG/10 ML SYRINGE ONE (13:10)
--- NOTE | 2020-10-18 13:25 | XR ---
KUB HISTORY: Kidney stone, preop Frontal KUB correlated prior KUB 09/30/2020 There is a double-J stent on the left as noted previously. Probable prostate calcifications noted in the pelvis. There are calcifications noted over the left kidney, at least 7 calcifications are noted, largest measures approximately 7 mm in the upper pole. Calcification along the proximal aspect of th e stent would be difficult to exclude similar to prior exam, additional calcification seen on prior e xam along the proximal aspect of the stent is not seen with certainty. Vascular calcifications are pr esent within the pelvis. This calcified lesion superimposed of the right kidney measuring approximate ly 7 mm, additional smaller calcifications are present at the lower and mid poles measuring only 2 to 3 mm. IMPRESSION: Bilateral nephrolithiasis as described.
[2020-10-18] MEDS ORDERED: IOPAMIDOL-370 50ML BTL MISCELLANE ONE (13:45)
[2020-10-18] MEDS ORDERED: LACTATED RINGERS 1,000 ML IV ONE (13:49)
[2020-10-18] MEDS ORDERED: ALBUTEROL NEBULIZED 2.5 MG/3 ML INHALATION ONE (15:20)
--- NOTE | 2020-10-18 15:21 | P.OP ---
Date of Procedure: 10/18/20 Preoperative Diagnosis: Bilateral renal stones Postoperative Diagnosis: Same Procedure(s) Performed: Cystoscopy, bilateral ureteroscopy, retrograde pyelogram, left holmium laser lithotripsy, stone basketing and stent exchange Implants: 6-Burmese by 26 cm stent left on a string Anesthesia: DALE Surgeon: Donald Mckeon Estimated Blood Loss (ml): 5 Pathology: other (left renal stone) Condition: stable Disposition: PACU Indications for Procedure: 55-year-old male with history of bilateral renal stones, left ureteral stone. He is Status post bilateral PCNL. He had a postop image that showed some residual stones along the stent on the left side. Discussed with him given this finding we will proceed with left-sided ureteroscopy prior to stent removal. Of note he's also been complaining of mild right flank pain, discussed with him we'll do right-sided retrograde pyelogram to rule out any residual stones on the right side, and if there is we'll address those at that time. Discussed with him risk of surgery which includes but not limited to bleeding, infection, injury to ureter. He understood all the risk and agreed to proceed with cystoscopy, bilateral retrograde pyelogram, left ureteroscopy with holmium laser lithotripsy, possible right ureteroscopy with holmium laser lithotripsy and stent placement Operative Findings: Multiple small renal stones within the upper, and the midpole on the left Description of Procedure: Patient was brought to the operating room, general anesthesia was induced. He was prepped and draped in sterile fashion and placed in dorsal lithotomy position. Cystoscopy fitted with a 21-Burmese sheath was inserted per urethra, cystoscopy was performed showed no abnormality within the bladder. Attention was then carried to the left ureteral orifice, the stent was grasped and pulled to the meatus. Next a sensor wire was advanced through the stent the stent was removed with the wire in place. Next a ureteral catheter was passed over the wire, retrograde Polygram was performed which showed a torturous proximal ureter but no filling along the course of the proximal ureter, of note there was moderate hydronephrosis Next a semirigid ureteroscope was inserted per urethra and advanced up the left ureteral orifice I was able to advance the scope all the way up to the UPJ, there was some narrowing in the proximal ureter, but I was able to advance the rigid ureteroscope past the area of narrowing, there was no evidence of any ureteral stones. at this time the ureteroscope was withdrawn with the wire in place. Next I attempted to pass the ureteroscope over the wire, but resistance was met at the UVJ. At this time a 1214 Burmese access sheath was passed over the wire and into the proximal ureter. Next the flexible ureteroscope was inserted through the access sheath, I attempted to pass the flexible ureteroscope through the area of narrowing but was not able to. At this time the ureteroscope was withdrawn with the wire in place. Next a ure teral balloon dilator was passed over the wire, and the narrowed area was dilated using the balloon dilator. Next a flexible ureteroscope was readvanced and I was able to advance the ureteroscope through the access sheath past the area of narrowing, renoscopy was performed which showed multiple small fragments within the upper in the midpole. These fragments were fragmented using the holmium laser, sizable fragment were removed using the stone basket. Repeat renoscopy showed no sizable fragments or injury to the kidney. Pullback ureteroscopy showed no injury to the ureter or any ureteral fragments. Of note the area of narrowing was patent. As the ureteroscope was withdrawn and a wire was advanced through the ureteroscope. Next a ureteral stent was passed over the wire, the proximal curl was visualized on fluoroscopy and distal curl was visualized using the cystoscope. The stent was left on a string and taped to the patient penis. Attention was then carried to the right side a semirigid ureteroscope was inserted through the urethra and advanced up the right ureteral orifice. I was able to advance the scope all the way up to the UPJ there was no area of narrowing or any ureteral stone, retrograde pyelogram was performed through the ureteroscope which showed no filling defect or hydronephrosis in the kidney. Of note there was a radiopaque density near the lower pole of the kidney, but there was no connection to the collecting system on retrograde pyelogram Pullback ureteroscopy showed no injury to the ureter and ureteral stone The bladder was emptied at the end of the case. Patient tolerated the procedure well was taken to PACU in stable condition
--- NOTE | 2020-10-18 15:41 | FL ---
Fluoroscopy HISTORY: Stent exchange 2 minutes 49 seconds fluoroscopy time supplied to the referring clinician. 5 intraoperative C-arm im ages document the procedure. See dictated report from urology.
[2020-10-18 15:48] VITALS: TEMP 97
[2020-10-18] MEDS ORDERED: HYDROcodone/APAP 5-325MG 1 EACH TAB PO ONE (16:55)
[2020-10-18] MEDS ORDERED: HYDROcodone/APAP 5-325MG 1 EACH TAB ONE (16:55)
[2020-10-18] MEDS ORDERED: TAMSULOSIN 0.4 MG CAP.ER.24H PO ONE (17:00)
[2020-10-18 17:08] VITALS: BP 136/84; PULSE 54
== END 2020-10-18 17:44 | disposition home or self-care (01) ==
LOC: OR 11:21
PROVIDERS: ATTEND Urology
DX: N20.0 Calculus of kidney (principal); Z87.442 Personal history of urinary calculi; E78.5 Hyperlipidemia, unspecified; I10 Essential (primary) hypertension; F17.210 Nicotine dependence, cigarettes, uncomplicated; Z98.890 Other specified postprocedural states; Z79.899 Other long term (current) drug therapy
CPT/HCPCS: 82365; 74420; 74018; 52356; C2625; C1894; C1758; C1769; J2250; J1100; J0690; J2405; J2001; J3010; J1170; J2370; J2704; Q9967

== ENCOUNTER → 2020-12-12 | Outpatient (CLI) | payer BC ==
--- NOTE | 2020-12-13 07:51 | US ---
EXAMINATION TYPE: US kidneys/renal and bladder DATE OF EXAM: 12/12/2020 COMPARISON: CT 2019 CLINICAL HISTORY: N20.1 Calculus of ureter. History of kidney stones and hydronephrosis, patient stat es he has had multiple surgeries to remove the stones. EXAM MEASUREMENTS: Right Kidney: 10.2 x 5.1 x 5.6 cm Left Kidney: 12.0 x 6.5 x 5.9 cm Right Kidney: 0.6cm echogenic focus inferior pole Left Kidney: hydronephrosis, multiple calcifications seen Bladder: wnl Bilateral Jets seen: yes No masses are identified. The urinary bladder is anechoic. Bilateral ureteral jets are seen. IMPRESSION: 1. Mild left-sided hydronephrosis with the multiple renal calculi noted
== END | disposition home or self-care (01) ==
LOC: RADUSWWP 16:06
PROVIDERS: ATTEND Urology
DX: N20.0 Calculus of kidney (principal); N13.30 Unspecified hydronephrosis
CPT/HCPCS: 76770

== ENCOUNTER → 2021-07-17 | Outpatient (CLI) | payer BC ==
--- NOTE | 2021-07-17 15:23 | US ---
EXAMINATION TYPE: US kidneys/renal and bladder DATE OF EXAM: 07/17/2021 COMPARISON: NONE CLINICAL HISTORY: N13.30 HYDRONEPHROSIS. History of kidney stones and lithotripsy EXAM MEASUREMENTS: Right Kidney: 11.1 x 5.2 x 5.4 cm Left Kidney: 11.1 x 5.2 x 4.0 cm Right Kidney: multiple stones seen with largest measuring 0.5cm Left Kidney: hydronephrosis, multiple stones seen with largest measuring 0.7cm Bladder: wnl Bilateral Jets seen: yes No masses are identified. The urinary bladder is anechoic. Bilateral ureteral jets are seen. IMPRESSION: Left-sided hydronephrosis with bilateral nephrolithiasis.
== END | disposition home or self-care (01) ==
LOC: RADUSWWP 14:19
PROVIDERS: ATTEND Urology
DX: N13.2 Hydronephrosis with renal and ureteral calculous obstruction (principal)
CPT/HCPCS: 76770

== ENCOUNTER → 2022-06-17 | Outpatient (CLI) | payer BC ==
--- NOTE | 2022-06-19 09:32 | CT ---
EXAMINATION TYPE: CT urogram wo/w con CT DLP: 2270 mGycm, Automated exposure control for dose reduction was used. DATE OF EXAM: 06/17/2022 4:30 PM COMPARISON: CT abdomen 07/22/2020 CLINICAL INDICATION:Male, 56 years old with history of N13.30 Hydronephrosis, Hydronephrosis and kidn ey stones TECHNIQUE: Urogram with imaging of the abdomen and pelvis. Coronal and sagittal reformats were performed. 2D and 3D reconstructions are performed to assist visualization of the urinary tract on a separate workstat ion. Contrast used:100 mL of Isovue 300 without and with IV Contrast, Oral contrast used: None. FINDINGS: GENITOURINARY: RIGHT KIDNEY AND URETER: Nonobstructing calculi measuring up to 7 mm. No hydronephrosis or hydrourete r. No renal mass or other lesions. No urothelial lesions: no filling defect, dilation, stricture or w all thickening. Some cortical thinning/ scarring noted posteriorly involving the right kidney. LEFT KIDNEY AND URETER: Nonobstructing calculi measuring up to 3 mm. Prior obstructing calculus in th e left renal pelvis is no longer visualizedMild left pelvocaliectasis. No definitive hydronephrosis. No renal mass or other lesions. No urothelial lesions: no filling defect, dilation, stricture or wall thickening. URINARY BLADDER: Limited evaluation secondary to partial filling of the bladder with excreted IV cont rast. No calculi or obvious mass. REPRODUCTIVE: The prostate gland is enlarged measuring up to 4.8 cm. There are coarse calcifications within the prostate. ABDOMEN LIVER: Unremarkable. GALLBLADDER AND BILE DUCTS: Unremarkable PANCREAS: Unremarkable. SPLEEN: Unremarkable. ADRENAL GLANDS: Unremarkable. STOMACH AND BOWEL: No evidence of bowel obstruction. PERITONEUM: No evidence of pneumoperitoneum, free fluid, or adenopathy. VASCULATURE: No aortic aneurysm. Atherosclerosis of the arterial vasculature. There is significant mac alan narrowing of the distal aorta just before the bifurcation with mural thrombus and eventual occl usion. The common iliac arteries bilaterally do not definitively demonstrate contrast. MUSCULOSKELETAL: No acute osseous abnormalities. SOFT TISSUE/ABDOMINAL WALL: Unremarkable. LOWER CHEST: No significant findings. IMPRESSION: 1. Bilateral obstructing renal calculi. No evidence of obstructive uropathy. Mild left pelvocaliectas is. No urothelial masses identified. 2. Thrombus of the distal aorta with nonvisualization of contrast within the bilateral common iliac a rteries. Further evaluation with CTA abdomen/pelvis with runoff is recommended. 3. Prostatomegaly.
== END | disposition home or self-care (01) ==
LOC: RADCTMAIN 14:36
PROVIDERS: ATTEND Urology
DX: N13.2 Hydronephrosis with renal and ureteral calculous obstruction (principal); N40.0 Benign prostatic hyperplasia without lower urinary tract symptoms; I74.10 Embolism and thrombosis of unspecified parts of aorta
CPT/HCPCS: 74178; 74400; Q9967

== ENCOUNTER → 2022-07-03 | Outpatient (CLI) | payer BC ==
--- NOTE | 2022-07-03 15:10 | CT ---
EXAMINATION TYPE: CT angio abd aorta w/Runoff DATE OF EXAM: 07/03/2022 2:20 PM COMPARISON: 06/17/2002 HISTORY: concern of blood flow in lower legs CT DLP: 2175 mGycm Automated exposure control for dose reduction was used. TECHNIQUE: Performed with IV Contrast, patient injected with 125 mL of Isovue 370. . FINDINGS: AORTA/ILIAC ARTERIES: The aorta is of normal caliber. There is extensive calcified and soft plaque most marked at the level below the renal arteries resulting in approximate 70-80% stenosis at the level L4. There is a complete occlusion of the distal aorta and the level of the aortic bifurcation complete oc clusion of the bilateral common iliac arteries. There is reconstitution on the right at the level of the origin of the external and internal right iliac artery which demonstrate eccentric 50% or less pl aque proximally. The left common iliac artery is completely occluded throughout its course. There is distal reconstitu tion of the multi focal disease internal iliac artery. There is reconstitution of the mid left regional account executive al iliac artery which is reduced caliber and subsequently demonstrates a greater than 70% significant stenosis. Celiac axis, SMA, SUHAS, and bilateral renal arteries are patent. Incidental note made of an accessory left-sided renal artery. RUNOFF VESSELS: Right lower extremity: The common femoral demonstrates atherosclerotic plaque measuring 50% or less. Deep femoral artery is patent and there is multifocal SFA moderate atherosclerotic plaque measuring 5 0% or less. Popliteal artery demonstrates mild atherosclerotic plaque. Tibial peroneal trunk appears to be patent. There is a severe stenosis of the distal tibial peroneal trunk measuring approximately greater than 80%. Subsequent filling of the trifurcation vessels which are diminutive in size the per waters artery patent to the level of the distal calf and the anterior tibial and posterior tibial elaine cristina seen into the foot supplying the dorsalis pedis and posterior calcaneal branches respectively. Left lower extremity: The common femoral demonstrates atherosclerotic plaque measuring 50% or less. Deep femoral artery is patent and there is multifocal SFA moderate atherosclerotic plaque measuring 50% or less. Popliteal a rtery demonstrates mild atherosclerotic plaque. Tibial peroneal trunk appears to be patent. There is a severe stenosis of the distal tibial peroneal trunk measuring approximately greater than 80%. Subse quent filling of the trifurcation vessels which are diminutive in size the peroneal artery patent to the level of the distal calf and the anterior tibial and posterior tibial arteries seen into the foot supplying the dorsalis pedis and posterior calcaneal branches respectively. ABDOMEN PELVIS: RIGHT KIDNEY AND URETER: Nonobstructing calculi measuring up to 7 mm. No hydronephrosis or hydrourete r. No renal mass or other lesions. No urothelial lesions: no filling defect, dilation, stricture or w all thickening. Some cortical thinning/ scarring noted posteriorly involving the right kidney. LEFT KIDNEY AND URETER: Multiple calculi measuring up to 3 mm. Mild pelvocaliectasis. No renal mass o r other lesions. No urothelial lesions: no filling defect, dilation, stricture or wall thickening. URINARY BLADDER: Limited evaluation secondary to partial filling of the bladder with excreted IV cont rast. No calculi or obvious mass. REPRODUCTIVE: The prostate gland is enlarged measuring up to 4.8 cm. There are coarse calcifications within the prostate. ABDOMEN LIVER: Unremarkable. GALLBLADDER AND BILE DUCTS: Unremarkable PANCREAS: Unremarkable. SPLEEN: Unremarkable. ADRENAL GLANDS: Unremarkable. STOMACH AND BOWEL: No evidence of bowel obstruction. Osseous structures: Hypertrophic and degenerative changes of the spine. Coronary artery calcification noted. Mild thickening to the bladder wall. IMPRESSION: 1. Diffuse atherosclerotic soft and calcified plaque of the abdominal aorta with no evidence of aneur ysm. There is a severe stenosis at the level L4 measuring greater than 70%) abrupt occlusion at the l evel of the aortic bifurcation with long segmental common iliac bilateral occlusions as discussed abo ve stable from recent CT scan. 2. Bilateral severe tibial peroneal trunk atherosclerotic stenosis 3. Bilateral internal and external iliac arteries atherosclerotic plaque as discussed above. 4. Bilateral nephrolithiasis. 5. Prostate enlargement correlate clinically 6. Mild thickening bladder wall correlate for cystitis.
== END | disposition home or self-care (01) ==
LOC: RADCTMAIN 13:03
PROVIDERS: ATTEND Urology
DX: I74.10 Embolism and thrombosis of unspecified parts of aorta (principal); I70.0 Atherosclerosis of aorta; M48.061 Spinal stenosis, lumbar region without neurogenic claudication; N20.0 Calculus of kidney; N40.0 Benign prostatic hyperplasia without lower urinary tract symptoms; N32.89 Other specified disorders of bladder
CPT/HCPCS: 75635; Q9967

== ENCOUNTER → 2022-09-18 | Outpatient (CLI) | payer BC ==
[2022-09-18 15:39] LABS: Partial Thromboplastin Time 22.9 sec (22.0-30.0)
[2022-09-18 23:08] LABS: HCT 46.2 % (39.6-50.0); HGB 15.4 g/dL (13.0-17.0); MCH 31.3 pg (27.0-32.0); MCHC 33.3 g/dL (32.0-37.0); MCV 93.9 fL (80.0-97.0); NRBC Per 100 WBC 0 /100 WBCS (0.0-0.0); Platelet Count 221 X 10*3/uL (140-440); RBC 4.92 X 10*6/uL (4.40-5.60); RDW 12.9 % (11.5-14.5)
[2022-09-18 23:26] LABS: ALT 35 U/L (10-49); AST 21 U/L (14-35); African American GFR (CKD) 109.7 (60.0-200.0); Albumin 4.5 g/dL (3.8-4.9); Alkaline Phosphatase 93 U/L (41-126); BUN/Creat Ratio 20.54 Ratio (12.00-20.00); Bilirubin, Conjugated <0.20 mg/dL (0.20-0.40); Blood Urea Nitrogen 18.4 mg/dL (9.0-27.0); Calcium 9.5 mg/dL (8.7-10.3); Carbon Dioxide 27.3 mmol/L (20.0-27.5); Chloride 102 mmol/L (96-109); Chol/HDL Ratio 6.22 Ratio; Globulin 2.4 g/dL (1.6-3.3); Glucose 105 mg/dL (70-110); LDL Cholesterol,Calculated 199.8 mg/dL (0.0-131.0); Non-African American GFR(CKD) 94.7 (60.0-200.0); Potassium 4.4 mmol/L (3.5-5.5); Sodium 141 mmol/L (135-145); Total Protein 6.9 g/dL (6.2-8.2)
== END | disposition home or self-care (01) ==
LOC: LABWHC1 14:17
PROVIDERS: ATTEND Internal Medicine
DX: Z01.818 Encounter for other preprocedural examination (principal); E78.5 Hyperlipidemia, unspecified; I10 Essential (primary) hypertension; R94.31 Abnormal electrocardiogram [ECG] [EKG]; R00.1 Bradycardia, unspecified
CPT/HCPCS: 36415; 80048; 80061; 80076; 85027; 85610; 85730; 93005

== ENCOUNTER 2023-01-22 11:30 | Inpatient (IN) | payer BC ==
[2023-02-11] MEDS ORDERED: LACTATED RINGERS 1,000 ML IV SCH (06:13)
[2023-02-11] MEDS ORDERED: DEXAMETHASONE SOD PHOSPHATE 4 MG/ML 1 ML VIAL IV ONE (06:13)
[2023-02-11] MEDS ORDERED: ONDANSETRON 4 MG/2 ML VIAL IVP ONE (06:13)
[2023-02-11] MEDS ORDERED: MIDAZOLAM 2 MG/2 ML VIAL IV PRN (06:13)
[2023-02-11] MEDS ORDERED: HYDROmorphone 0.5 MG/0.5 ML SYRINGE IVP PRN (06:13)
[2023-02-11] MEDS ORDERED: LIDOCAINE 1% (10MG/ML) FOR IV START INTRADERMA PRN (06:13)
[2023-02-11] MEDS ORDERED: ONDANSETRON 4 MG/2 ML VIAL ONE (06:14)
[2023-02-11] MEDS ORDERED: fentaNYL (PF) 50 MCG/ML 2 ML AMP IVP ONE ×2 (06:38→07:00)
[2023-02-11] MEDS ORDERED: MIDAZOLAM 2 MG/2 ML VIAL IVP ONE (07:00)
--- NOTE | 2023-02-11 07:21 | P.HPIHPCON ---
History of Present Illness H&P Date: 02/11/23 Kristian is a 57-year-old male with aortoiliac occlusive disease with lifestyle limiting claudication of his lower extremities. He has been worked up and evaluated and found to be fit for a aortobifemoral bypass given his young age. Risks and benefits of procedure been discussed and he presents today for the procedure. Consent for Procedure: I have explained the operation/procedure to the patient, including the risks, benefits, side effects, alternative therapies (including not receiving the proposed treatment or service), the likelihood of the patient achieving his/her goals, and potential recuperation problems for the procedure/sedation/analgesia, as well as any blood products, if indicated. I also explained to the patient the risks, benefits and side effects of the alternatives, as well as the risks related to not receiving the proposed procedure, care, treatment, or services. Past Medical History Past Medical History: Hyperlipidemia, Hypertension Additional Past Medical History / Comment(s): Hx kidney stones. History of Any Multi-Drug Resistant Organisms: None Reported Additional Past Surgical History / Comment(s): Oral surgery, kidney stone surgery X3. Past Anesthesia/Blood Transfusion Reactions: No Reported Reaction Past Psychological History: Anxiety Smoking Status: Current every day smoker Past Alcohol Use History: Rare Additional Past Alcohol Use History / Comment(s): Smokes 1ppd since age 15. Past Drug Use History: Marijuana Additional Drug Use History / Comment(s): Instructed to refrain from using Marijuana for 24 hours prior to surgery. - Past Family History Father Family Medical History: Congestive Heart Failure (CHF), CVA/TIA, Myocardial Infarction ([place]) Medications and Allergies Home Medications Medication Instructions Recorded Confirmed Type atenoloL [Atenolol] 25 mg PO QAM 08/22/20 02/11/23 History Aspirin [Adult Low Dose Aspirin EC] 81 mg PO DAILY 01/19/23 02/11/23 History Rosuvastatin Calcium 40 mg PO HS 01/19/23 02/11/23 History Allergies Allergy/AdvReac Type Severity Reaction Status Date / Time No Known Allergies Allergy Verified 02/11/23 06:19 Surgical - Exam Genitals a pleasant cooperative male in no acute distress. Heart appears reg ular. Lungs are clear. Abdomen is soft, nontender. No palpable femoral or pedal pulses. Bilateral lower extremity is are warm and dry. Assessment and Plan Assessment: Aortoiliac occlusive disease Atherosclerosis of the [place] extremities with intermittent claudication Tobacco abuse Plan: Given the patient's severe claudication and aortoiliac disease again we discussed aortobifemoral bypass. Risks and benefits were discussed. He seemingly understood and is willing to proceed. We'll plan for the procedure this morning.
--- NOTE | 2023-02-11 07:24 | P.ANPRN ---
Procedure Note - Anesthesia - Nerve Block Performed Bilateral Erector Spinae Single Time Out Performed: Yes ([id number]) Date of Procedure: 02/11/23 Procedure Start Time: 06:50 Procedure Stop Time: 06:58 Location of Patient: PreOp Indication: Acute Post-Operative Pain, Requested by Surgeon Sedation Type: Sedate with meaningful contact maintained Preparation: Sterile Prep, Sterile Dressing Position: Sitting Needle Types: Pajunk Needle Gauge: 21 Ultrasound used to visualize needle placement: Yes Ultrasound used to observe medication spread: Yes Injectate: 0.5% Ropivacaine (see comment for volume) (10 ml right, 10 ml left) Blood Aspirated: No Pain Paresthesia on Injection Noted: No Resistance on Injection: Normal Image Stored and Saved: Yes - Invasive Line Left Arterial Line Time Out Performed: Yes Date of Procedure: 02/11/23 Time of Procedure: 06:38 Location of Patient: PreOp Preparation: Sterile Prep Arterial Line Location: Radial Ultrasound Used: No Narrative: Central line placement per sterile protocol utilized. Right Central Line Time Out Performed: Yes Date of Procedure: 02/11/23 Time of Procedure: 07:05 Location of Patient: PreOp Preparation: Sterile Prep, Sterile Dressing Central Line Location: Internal Jugular Ultrasound Used: Yes Purpose - Visualization and Identification of Vasculature: Yes Image Stored and Saved: Yes Narrative: Central line placement per sterile protocol utilized.
[2023-02-11] MEDS ORDERED: NEOSTIGMINE 1 MG/ML 10 ML VIAL ONE (07:40)
[2023-02-11] MEDS ORDERED: ROPIVACAINE 5 MG/ML 30 ML VIAL ONE (07:40)
[2023-02-11] MEDS ORDERED: NITROGLYCERIN-D5W PMX 50 MG/250 ML BOTTLE IV ONE (07:40)
[2023-02-11] MEDS ORDERED: ROCURONIUM 10 MG/ML (5 ML VIAL) IV ONE (07:40)
[2023-02-11] MEDS ORDERED: PHENYLEPHRINE-0.9% NACL SYG 1,000 MCG/10 ML SYRINGE ONE (07:40)
[2023-02-11] MEDS ORDERED: LIDOCAINE 2% INJ 20 MG/ML (2 ML VIAL) ONE (07:40)
[2023-02-11] MEDS ORDERED: GLYCOPYRROLATE 0.2 MG/ML 2 ML VIAL ONE (07:40)
[2023-02-11] MEDS ORDERED: ESMOLOL 100 MG/10 ML VIAL ONE (07:40)
[2023-02-11] MEDS ORDERED: SUCCINYLCHOLINE CHLORIDE 200 MG/10 ML VIAL IV ONE (07:40)
[2023-02-11] MEDS ORDERED: PROPOFOL 10 MG/ML 20 ML VIAL IV ONE (07:40)
[2023-02-11] MEDS ORDERED: PROTAMINE SULFATE 10 MG/ML 5 ML VIAL IV ONE (07:40)
[2023-02-11] MEDS ORDERED: HEPARIN SODIUM,PORCINE 10,000 UNIT/ML 1 ML VIAL ONE (07:40)
[2023-02-11] MEDS ORDERED: fentaNYL (PF) 50 MCG/ML 2 ML AMP ONE (07:40)
[2023-02-11] MEDS ORDERED: HYDROmorphone (PF) 1 MG/ML ONE (07:40)
[2023-02-11] MEDS ORDERED: LABETALOL 5 MG/ML VIAL MDV ONE (07:40)
[2023-02-11] MEDS ORDERED: MIDAZOLAM 2 MG/2 ML VIAL ONE (07:40)
[2023-02-11] MEDS ORDERED: SODIUM CHLORIDE 0.9% 1,000 ML IV ONE ×2 (07:45→11:09)
[2023-02-11] MEDS ORDERED: HEPARIN SODIUM (1,000 UNIT/ML) 10,000 UNIT in SODIUM CHLORIDE 0.9% 1,000 ML IRRIGATION ONE (08:26)
[2023-02-11] MEDS ORDERED: ceFAZolin 4,000 MG in SODIUM CHLORIDE 0.9% 1,000 ML IRRIGATION ONE (08:28)
[2023-02-11] MEDS ORDERED: GELATIN SPONGE,ABSORB (LARGE) 1 EACH SPONGE TOPICAL ONE (10:29)
[2023-02-11] MEDS ORDERED: THROMBIN (BOVINE) 5,000 UNIT VIAL TOPICAL ONE (10:30)
--- NOTE | 2023-02-11 11:32 | P.OP ---
Date of Procedure: 02/11/23 Description of Procedure: PREOPERATIVE DIAGNOSES: 1. Aortoiliac occlusion 2: Lifestyle limiting claudication 3 tobacco abuse POSTOPERATIVE DIAGNOSES: Same OPERATION PERFORMED: 1.Aortobifemoral bypass with 14 x 7 mm [place]-Kwabena graft. 2 aortic thromboendarterectomy SURGEON: José Miguel TAR CHASER: Morales ANESTHESIA: General endotracheal. COMPLICATIONS: None. ESTIMATED BLOOD LOSS: 350 mL IV FLUIDS: 2400 mL URINE OUTPUT: 350 mL DISPOSITION: The patient tolerated the procedure well and was stable to PACU with palpable posterior tibial pulses bilaterally INDICATIONS FOR OPERATION: The patient is a (57)-year-old gentleman with aortoiliac occlusive disease. It was discussed with the patient operative intervention, open versus endovascular approach. It was discussed that we thought that he was a better candidate for open repair due to his body habitus and young age.. Risks, indications, and technique of the operative intervention, aortobifemoral bypass, were discussed with the patient. The patient understood and was agreeable for the aortobifemoral bypass. DESCRIPTION OF OPERATION: The patient was brought to the operating room and was identified as the patient. He had preoperative erector spinae block by anesthesia area General anesthesia was induced. Central venous access and arterial line were placed previously by anesthesia. He was prepped and draped in the normal sterile fashion. A preprocedure procedural timeout was performed, all parties were in agreement. Bilateral inguinal incisions were made and dissection down to the level of the common, superficial, and deep femoral arteries was performed.Wet Ray-Tracy sponges were then laid into these wounds, and each of the vessels, common superficial and deep femoral, were controlled with Silastic vessel loops. Standard midline incision was made and entry into the abdominal cavity was performed. Liver was palpated with no abnormalities. Bowel showed no focal areas of abnormality. The retroperitoneum was then exposed and the duodenum was reflected to the right side. The small bowel was all packed to the right side of the abdomen. A Bookwalter retractor was used to retract the tissue. Retroperitoneum was dissected. The inferior neck was dissected for an appropriate length. This was dissected on each lateral border. The dissection was taken down to the level of the bifurcation. Vessel loops were then used to tunnel from retroperitoneum to the femoral regions and umbilical tapes were placed through these areas. The patient was heparinized and appropriate circulation time was allowed. The aorta was clamped with a preselected clamp An 14 x 7 mm [place]-Kwabena graft had already been selected. The tube portion was cut to the appropriate length, and anastomosis was performed using a 3-0 Prolene stitch beginning at the posterior aspect of the wall and run circumferentially. It was tied. The graft limbs were clamped and then the anastomotic area was inspected. The anastomosis was hemostatic. The graft limbs were then clamped proximally, and graft limbs were tunneled appropriately. The right side was then clamped in common, superficial, and deep femoral arteries. Femoral arteriotomy was made with an 11 blade followed by angled Amaya scissors. The anastomosis was performed after graftotomy was made using a 5-0 Prolene. This was begun at the heel and run circumferentially. Upon completion, the areas were back-bled with nominal back-bleeding from superficial femoral artery, better back-bleeding from the profunda femoris and common femoral arteries. The anastomosis was completed. The graft was de-aired prior to completing the anastomosis. The pelvic clamp was released followed by release of the graft clamp, and hemostasis was adequately achieved. The profunda femoris and then the superficial femoral artery were all released. The bleeding was controlled with thrombin Gelfoam Anastomosis on the left was performed in a similar fashion. Again, prior to release of the clamp, there was nominal back-bleeding from the superficial femoral artery and reasonable back-bleeding from the profunda femoris as well as the common femoral artery. The graft was de-aired. The anastomosis was irrigated and then completed. Hemostasis was achieved with thrombin and Gelfoam. The areas were inspected. Single repair suture was used for hemostasis. The wounds were irrigated. The wounds were irrigated. The abdominal cavity was again inspected. The retroperitoneum was closed using 3-0 chromic in a running fashion to reapproximate the aortic wall as well as the retroperitoneum. Then, the abdominal cavity was again irrigated and then a #1 looped PDS suture was used to repair the abdominal wall. The groins were repaired in layers using 2-0 Vicryl for deep, 3-0 Vicryl for superficial fascia, and then 4-0 Monocryl subcuticular stitch for skin closures. A 4-0 Vicryl stitch was also used for skin closure of the abdominal wound. Appropriate dressings were applied. The patient was extubated on the operating table and transferred to the PACU in stable condition with palpable PTs bilaterally
[2023-02-11] MEDS ORDERED: NITROGLYCERIN-D5W PMX 50 MG in DEXTROSE/WATER 1 250ML.BAG IV ONE (12:18)
--- NOTE | 2023-02-11 12:33 | XR ---
EXAMINATION TYPE: XR chest 1V DATE OF EXAM: 02/11/2023 12:25 PM COMPARISON: Chest radiographs from later today. TECHNIQUE: XR chest 1V Portable AP radiograph of the chest. CLINICAL INDICATION:Male, 57 years old with history of line placement; FINDINGS: Lungs/Pleura: There is no evidence of pleural effusion, focal consolidation, or pneumothorax. Senesc ent parenchyma change. Pulmonary vascularity: Unremarkable. Heart/mediastinum: Cardiomediastinal silhouette is unremarkable. Musculoskeletal: No acute osseous pathology. Other findings: None Lines/Tubes: Nasogastric tube is demonstrated with distal tip extending into the right mainstem bronchus. This is subsequently removed on follow-up radiograph. Right internal jugular central venous catheter with distal tip at the superior cavoatrial junction. IMPRESSION: 1. Malpositioned NG tube with distal tip in the right mainstem bronchus. This is subsequently reposi tioned on follow-up chest radiograph. 2. Appropriate position of right internal jugular central venous catheter with distal tip at the sup erior cavoatrial junction.
--- NOTE | 2023-02-11 12:35 | XR ---
EXAMINATION TYPE: XR chest 1V portable DATE OF EXAM: 02/11/2023 12:25 PM COMPARISON: Chest radiographs from there today TECHNIQUE: XR chest 1V portable Portable AP radiograph of the chest. CLINICAL INDICATION:Male, 57 years old with history of Adjusted NG tube placement per RN; FINDINGS: Lungs/Pleura: There is no evidence of pleural effusion, focal consolidation, or pneumothorax. Senesc ent parenchyma change. Pulmonary vascularity: Unremarkable. Heart/mediastinum: Cardiomediastinal silhouette is unremarkable. Musculoskeletal: No acute osseous pathology. Other findings: None Lines/Tubes: Nasogastric tube with its distal tip and side-port projecting under the diaphragm. Right internal jugular central venous catheter with distal tip at the superior cavoatrial junction. IMPRESSION: 1. Repositioned NG tube with distal tip coursing below the diaphragm. 2. Stable position of right IJ central venous catheter.
[2023-02-11 12:39] LABS: Basophils % (A) 0 %; Eosinophils # (A) 0.1 k/uL (0-0.7); Eosinophils % (A) 1 %; HCT 41.6 % (39.0-53.0); HGB 13.9 gm/dL (13.0-17.5); Lymphocytes # (A) 1.2 k/uL (1.0-4.8); Lymphocytes % (A) 8 %; MCH 30.8 pg (25.0-35.0); MCHC 33.4 g/dL (31.0-37.0); MCV 92.3 fL (80.0-100.0); Mean Platelet Volume 8.1; Monocytes # (A) 0.5 k/uL (0-1.0); Monocytes % (A) 3 %; Neutrophils # (A) 13.6 k/uL (1.3-7.7); Neutrophils % (A) 88 %; Platelet Count 159 k/uL (150-450); RDW 12.6 % (11.5-15.5); WBC 15.5 k/uL (3.8-10.6)
[2023-02-11 12:41] LABS: Glucose,Whole Blood 162 mg/dL (70-110)
[2023-02-11 12:55] LABS: African American GFR (CKD) >90 (>60 ml/min/1.73 sqM); Anion Gap 8 mmol/L; Blood Urea Nitrogen 20 mg/dL (9-20); Calcium 7.6 mg/dL (8.4-10.2); Carbon Dioxide 21 mmol/L (22-30); Chloride 107 mmol/L (98-107); Glucose 160 mg/dL (74-99); Non-African American GFR(CKD) >90 (>60 ml/min/1.73 sqM); Potassium 4.1 mmol/L (3.5-5.1); Sodium 136 mmol/L (137-145)
[2023-02-11] MEDS: NITROGLYCERIN-D5W PMX 50 MG in DEXTROSE/WATER 1 250ML.BAG IV SCH (14:00)
--- NOTE | 2023-02-11 14:58 | P.CNPUL ---
History of Present Illness Consult date: 02/11/23 Requesting physician: Katina Valdez Reason for consult: other (Critical care management) Chief complaint: Bilateral lower extremity pain History of present illness: This is a pleasant 57-year-old male patient with known history of aortoiliac occlusive disease, atherosclerosis of the [place] arteries of the extremities with intermittent claudication in the bilateral legs, chronic and ongoing tobacco dependence, carotid stenosis. He was brought in electively today 02/11/2023 for an aorta bifemoral bypass with a 14 x 7 mm [place]-Kwabena graft and aortic thromboendarterectomy. He is seen in the intensive care unit in consultation. He is currently awake and maintain O2 saturations in the 90s on room air. He is requiring nitroglycerin drip at 25 mcg/m. Normal saline at 75 ML's per hour. His pain is controlled with Dilaudid and morphine as needed. He is on antibiotics in the form of cefazolin. Heparin for DVT prophylaxis. He currently has Doppler pulses. Prevena wound VAC in place to the abdomen and bilateral groins. Chest x-ray revealed no evidence of pleural effusion, focal consolidation or pneumothorax. Right IJ triple-lumen catheter in place. Nasogastric tube in place. Review of Systems REVIEW OF SYSTEMS: CONSTITUTIONAL: Denies any recent significant weight loss or weight gain. EYES: Denies change in vision. EARS, NOSE, MOUTH, THROAT: Denies headaches, denies sore throat. CARDIOVASCULAR: Denies chest pain, palpitations or syncopal episodes. RESPIRATORY: Denies shortness of breath, cough, congestion or hemoptysis. GASTROINTESTINAL: Denies change in appetite, denies abdominal pain GENITOURINARY: Denies hematuria, denies infections. MUSKULOSKELETAL: Intermittent claudication of the lower extremities. INTEGUMENTARY: Denies rash, denies eczema. NEUROLOGICAL: Denies recent memory loss, no recent seizure activity. PSYCHIATRIC: Denies anxiety, denies depression. HEMATOLOGIC/LYMPHATIC: Denies anemia, denies enlarged lymph nodes. Past Medical History Past Medical History: Hyperlipidemia, Hypertension Additional Past Medical History / Comment(s): Hx kidney stones. History of Any Multi-Drug Resistant Organisms: None Reported Additional Past Surgical History / Comment(s): Oral surgery, kidney stone surgery X3. Past Anesthesia/Blood Transfusion Reactions: No Reported Reaction Past Psychological History: Anxiety Smoking Status: Current every day smoker Past Alcohol Use History: Rare Additional Past Alcohol Use History / Comment(s): Smokes 1ppd since age 15. Past Drug Use History: Marijuana Additional Drug Use History / Comment(s): Instructed to refrain from using Marijuana for 24 hours prior to surgery. - Past Family History Father Family Medical History: Congestive Heart Failure (CHF), CVA/TIA, Myocardial Infarction ([place]) Medications and Allergies Home Medications Medication Instructions Recorded Confirmed Type atenoloL [Atenolol] 25 mg PO QAM 08/22/20 02/11/23 History Aspirin [Adult Low Dose Aspirin EC] 81 mg PO DAILY 01/19/23 02/11/23 History Rosuvastatin Calcium 40 mg PO HS 01/19/23 02/11/23 History Allergies Allergy/AdvReac Type Severity Reaction Status Date / Time No Known Allergies Allergy Verified 02/11/23 06:19 Physical Exam Vitals: Vital Signs Temp Pulse Resp BP BP Pulse Ox 02/11/23 13:35 82 14 129/72 94 L 02/11/23 13:20 74 14 143/71 96 02/11/23 13:05 70 14 144/67 95 02/11/23 12:50 68 12 134/56 95 02/11/23 12:35 76 16 127/62 93 L 02/11/23 12:20 76 16 119/67 93 L 02/11/23 12:05 77 16 115/65 93 L 02/11/23 11:50 97.0 F L 81 16 126/67 93 L 02/11/23 11:36 90 16 130/67 93 L 02/11/23 07:00 60 16 122/69 97 02/11/23 06:45 96.8 F L 59 L 16 142/84 99 Intake and Output 02/10/23 02/11/23 02/11/23 22:59 06:59 14:59 Intake Total 200 3102 Output Total 650 Balance 200 2452 Intake: IV 200 3102 Output: Urine 300 Estimated Blood Loss 350 Other: Weight 80 kg GENERAL EXAM: Alert, pleasant 57-year-old male patient, on room air, fairly comfortable in no apparent distress. HEAD: Normocephalic. EYES: Normal reaction of pupils, equal size. NOSE: Nasogastric tube secured in place. Clear with pink turbinates. THROAT: No erythema or exudates. NECK: No masses, no JVD. CHEST: No chest wall deformity. LUNGS: Equal air entry with no crackles, wheeze, rhonchi or dullness. CVS: S1 and S2 normal with no audible murmur, regular rhythm. ABDOMEN: Prevenawound VAC dressing in place to the lower abdomen and bilateral groin. No guarding or rigidity. SPINE: No scoliosis or deformity SKIN: No rashes CENTRAL NERVOUS SYSTEM: No focal deficits, tone is normal in all 4 extremities. EXTREMITIES: There is no peripheral edema. No clubbing, no cyanosis. Perip heral pulses are intact mainly via Doppler. Results - Laboratory Findings CBC and BMP: 02/11/23 12:24 02/11/23 12:24 Abnormal lab findings: Abnormal Labs 02/11/23 02/11/23 02/11/23 12:24 12:24 12:39 WBC 15.5 H Neutrophils # 13.6 H Sodium 136 L Carbon Dioxide 21 L Creatinine 0.65 L Glucose 160 H POC Glucose (mg/dL) 162 H Calcium 7.6 L - Diagnostic Findings Chest x-ray: image reviewed Assessment and Plan Assessment: Aortic iliac occlusion, lifestyle limiting claudication. Status post aortobifemoral bypass with a 14 x 7 mm [place]-Kwabena graft and aortic thromboendarterectomy. Postoperative day #0. Chronic and ongoing tobacco dependence of 40 years Hypertension Hyperlipidemia History of anxiety History of marijuana use History of nephrolithiasis requiring surgery 3 Plan: The patient was seen and evaluated Chest x-ray, labs and medications reviewed Currently stable and on room air Titrate the nitroglycerin drip as tolerated Educated regarding the importance of complete smoking cessation Educated regarding the use of the incentive spirometer Continue to monitor closely here in the intensive care unit We will continue to follow and make further recommendations based on his clinical status I have personally seen and examined the patient, performed the documentation and the assessment and plan as written. Number of minutes spent on the visit: 20.
[2023-02-11] MEDS: SODIUM CHLORIDE 0.9% 1,000 ML IV SCH (15:12)
[2023-02-11 15:32] LABS: Glucose,Whole Blood 135 mg/dL (70-110)
[2023-02-11 18:47] LABS: Glucose,Whole Blood 145 mg/dL (70-110)
[2023-02-11] MEDS: HEPARIN SODIUM,PORCINE/PF 5,000 UNIT/0.5 ML SYRINGE SQ SCH (19:25)
[2023-02-11] MEDS: ONDANSETRON 4 MG/2 ML VIAL IVP PRN (20:01)
[2023-02-11] MEDS: MORPHINE SULFATE 4 MG/ML SYRINGE IV PRN (20:02)
[2023-02-12] MEDS: HEPARIN SODIUM,PORCINE/PF 5,000 UNIT/0.5 ML SYRINGE SQ SCH ×4 (00:37→23:52)
[2023-02-12] MEDS: MORPHINE SULFATE 4 MG/ML SYRINGE IV PRN ×3 (00:37→05:58)
[2023-02-12] MEDS: ONDANSETRON 4 MG/2 ML VIAL IVP PRN (05:58)
[2023-02-12] MEDS: SODIUM CHLORIDE 0.9% 1,000 ML IV SCH ×3 (06:00→16:49)
[2023-02-12 06:16] LABS: Glucose,Whole Blood 138 mg/dL (70-110)
[2023-02-12 06:35] LABS: Basophils % (A) 0 %; Eosinophils # (A) 0.1 k/uL (0-0.7); Eosinophils % (A) 0 %; HCT 43.3 % (39.0-53.0); HGB 14.4 gm/dL (13.0-17.5); Lymphocytes # (A) 2.6 k/uL (1.0-4.8); Lymphocytes % (A) 15 %; MCH 30.7 pg (25.0-35.0); MCHC 33.3 g/dL (31.0-37.0); MCV 92.1 fL (80.0-100.0); Mean Platelet Volume 8.5; Monocytes # (A) 1.3 k/uL (0-1.0); Monocytes % (A) 7 %; Neutrophils % (A) 75 %; Platelet Count 146 k/uL (150-450); RDW 12.6 % (11.5-15.5); WBC 17.3 k/uL (3.8-10.6)
[2023-02-12 06:51] LABS: African American GFR (CKD) >90 (>60 ml/min/1.73 sqM); Anion Gap 6 mmol/L; Blood Urea Nitrogen 14 mg/dL (9-20); Calcium 7.9 mg/dL (8.4-10.2); Carbon Dioxide 23 mmol/L (22-30); Chloride 106 mmol/L (98-107); Glucose 118 mg/dL (74-99); Non-African American GFR(CKD) >90 (>60 ml/min/1.73 sqM); Sodium 135 mmol/L (137-145)
[2023-02-12 06:54] LABS: Potassium 3.7 mmol/L (3.5-5.1)
[2023-02-12] MEDS: POTASSIUM CHLORIDE 10 MEQ in WATER FOR INJECTION 1 100ML.BAG IVPB SCH ×2 (09:14→11:15)
[2023-02-12] MEDS ORDERED: NALOXONE 0.4 MG/ML 1 ML VIAL IV PRN ×2 (09:56→12:12)
[2023-02-12] MEDS ORDERED: MORPHINE PCA 50 MG/50 ML BAG IV PRN (09:56)
[2023-02-12] MEDS ORDERED: BENZOCAINE/MENTHOL LOZENG 1 EACH LOZENGE MUCOUS MEM PRN (10:02)
--- NOTE | 2023-02-12 11:32 | P.PN ---
Subjective Progress Note Date: 02/12/23 Patient is seen and examined today in the ICU. He is postop day #1 for aortobifemoral bypass with [place]-Kwabena graft and aortic thromboendarterectomy. Currently has NG tube in place with bowel 100 mL output, had some nausea this morning with pain medication. States he has quite a bit of pain. Denies passi ng gas. No shortness of breath or chest pain. Temp 99.6 heart rate 81 respiratory rate 18 blood pressure 137/80 oxygen level 92% on room air. Nitro drip was discontinued. Valdez catheter in place with good urine output. Objective - Vital Signs Vital signs: Vital Signs Temp 99.6 F 02/12/23 08:00 Pulse 76 02/12/23 09:00 Resp 14 02/12/23 09:00 BP 149/85 02/12/23 09:00 Pulse Ox 94 L 02/12/23 09:00 FiO2 Intake & Output 02/11/23 02/12/23 02/12/23 18:59 06:59 18:59 Intake Total 3335.250 900 325 Output Total 1440 2075 485 Balance 1895.250 -1175 -160 Weight 83.2 kg Intake: IV 3327 900 325 Potassium Chloride 10 meq 100 In Water For Injection 1 100ml.bag @ 100 mls/hr IVPB Q1H [facility] Rx#: [id number] Sodium Chloride 0.9% 1, 225 900 225 000 ml @ 75 mls/hr IV . [id number] [facility] Rx#:[id number] Intake, IV Titration 8.250 Amount Nitroglycerin-D5w Pmx 50 8.250 mg In Dextrose/Water 1 250ml.bag @ 5 MCG/MIN 1.5 mls/hr IV .Q24H [facility] Rx#: [id number] Output: Gastric Drainage 100 Urine 1090 2075 385 Estimated Blood Loss 350 Other: Voiding Method Indwelling Catheter Indwelling Catheter ABP, PAP, CO, CI - Last Documented Arterial Blood Pressure 114/77 - Exam General appearance: The patient is alert, oriented, appears in no acute d istress. HET: Head is normocephalic and atraumatic. Pupils are equal and reactive. NG tube in place with approximate 100 mL output Neck: Supple. Heart: Regular. Lungs: Equal expansion, normal respiratory effort. Abdomen: Soft, nontender, nondistended, with dressing in place with good suction. Extremities: Normal skin color and turgor. A faint palpable PT pulses, bilateral PT and DP Doppler signals. Feet warm to the touch, sensorimotor intact, good capillary refill. Neurological: No focal deficits. Strength and sensation are grossly intact. - Labs CBC & Chem 7: 02/12/23 06:15 02/12/23 06:15 Labs: Abnormal Lab Results - Last 24 Hours (Table) 02/11/23 02/11/23 02/11/23 Range/Units 12:24 12:24 12:39 WBC 15.5 H (3.8-10.6) k/uL Plt Count (150-450) k/uL Neutrophils # 13.6 H (1.3-7.7) k/uL Monocytes # (0-1.0) k/uL Sodium 136 L (137-145) mmol/L Carbon Dioxide 21 L (22-30) mmol/L Creatinine 0.65 L (0.66-1.25) mg/dL Glucose 160 H (74-99) mg/dL POC Glucose (mg/dL) 162 H (70-110) mg/dL Calcium 7.6 L (8.4-10.2) mg/dL 02/11/23 02/11/23 02/12/23 Range/Units 15:30 18:46 06:14 WBC (3.8-10.6) k/uL Plt Count (150-450) k/uL Neutrophils # (1.3-7.7) k/uL Monocytes # (0-1.0) k/uL Sodium (137-145) mmol/L Carbon Dioxide (22-30) mmol/L Creatinine (0.66-1.25) mg/dL Glucose (74-99) mg/dL POC Glucose (mg/dL) 135 H 145 H 138 H (70-110) mg/dL Calcium (8.4-10.2) mg/dL 02/12/23 02/12/23 Range/Units 06:15 06:15 WBC 17.3 H (3.8-10.6) k/uL Plt Count 146 L (150-450) k/uL Neutrophils # 13.0 H (1.3-7.7) k/uL Monocytes # 1.3 H (0-1.0) k/uL Sodium 135 L (137-145) mmol/L Carbon Dioxide (22-30) mmol/L Creatinine 0.65 L (0.66-1.25) mg/dL Glucose 118 H (74-99) mg/dL POC Glucose (mg/dL) (70-110) mg/dL Calcium 7.9 L (8.4-10.2) mg/dL Assessment and Plan Assessment: 1. Postop day #1 for aortobifemoral bypass with [place] kwabena graft and aortic thromboendarterectomy 2. Aorto iliac occlusion with lifestyle omitting claudication 3. Tobacco abuse 4. Hypertension 5. Hyperlipidemia Plan: 1. Continue to educate and encourage use of incentive spirometer 2. Daily CBC, BMP 3. Continue pain management, will order morphine [employer] SUPERVISOR pump 4. Keep NG tube in place 5. Nothing by mouth except medications and ice chips 6. Keep Valdez catheter in place 7. Increase IV fluids to 125 mL per hour 8. Keep SCDs in place 9. Medical management per primary medical team 10. Please keep in ICU for close monitoring The impression and plan of care has been dictated as directed. I performed a history and examination of this patient, discussed the same with the dictator. I agree with the dictator's note ,documented as a scribe. Any additional findings or plans will be noted.
[2023-02-12 11:51] LABS: Glucose,Whole Blood 116 mg/dL (70-110)
--- NOTE | 2023-02-12 12:31 | P.PN ---
Subjective Progress Note Date: 02/12/23 Principal diagnosis: Status post aortobifemoral bypass with [place]-Kwabena graft and aortic thromboendarterectomy. 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 He was brought in electively today 02/11/2023 for an aorta bifemoral bypass with a 14 x 7 mm Cisco-Kwabena graft and aortic thromboendarterectomy. He is seen in the intensive care unit in consultation. He is currently awake and maintain O2 saturations in the 90s on room air. He is requiring nitroglycerin drip at 25 mcg/m. Normal saline at 75 ML's per hour. His pain is controlled with Dilaudid and morphine as needed. He is on antibiotics in the form of cefazolin. Heparin for DVT prophylaxis. He currently has Doppler pulses. Prevena wound VAC in place to the abdomen and bi lateral groins. Chest x-ray revealed no evidence of pleural effusion, focal consolidation or pneumothorax. Right IJ triple-lumen catheter in place. Nasogastric tube in place. Patient was reevaluated today on , A. serena remains in the ICU, he is doing great. Continues to have a nasogastric tube in place, he had some nausea with pain earlier this morning, has not had any bowel movements denies any shortness of breath or chest pain, he is hemodynamically stable, on room air with O2 saturation 92%. His nitroglycerin drip was discontinued earlier. Valdez catheter remains in place and he has good urine output. WBC count is 17.3 hemoglobin 4.4 electrodes are normal renal profile is normal. Objective - Vital Signs Vital signs: Vital Signs Temp 99.6 F 02/12/23 08:00 Pulse 78 02/12/23 11:00 Resp 19 02/12/23 11:00 BP 148/86 02/12/23 11:00 Pulse Ox 93 L 02/12/23 12:12 FiO2 Intake & Output 02/11/23 02/12/23 02/12/23 18:59 06:59 18:59 Intake Total 3335.250 900 575 Output Total 1440 2075 635 Balance 1895.250 -1175 -60 Weight 83.2 kg Intake: IV 3328 900 575 Potassium Chloride 10 meq 100 In Water For Injection 1 100ml.bag @ 100 mls/hr IVPB Q1H [facility] Rx#: [id number] Sodium Chloride 0.9% 1, 225 900 475 000 ml @ 125 mls/hr IV . Q8H [facility] Rx#:[id number] Intake, IV Titration 8.250 Amount Nitroglycerin-D5w Pmx 50 8.250 mg In Dextrose/Water 1 250ml.bag @ 5 MCG/MIN 1.5 mls/hr IV .Q24H [facility] Rx#: [id number] Output: Gastric Drainage 150 Urine 1090 2075 485 Estimated Blood Loss 350 Other: Voiding Method Indwelling Catheter Indwelling Catheter Indwelling Catheter ABP, PAP, CO, CI - Last Documented Arterial Blood Pressure 116/78 - Exam Physical Exam: Revealed a 57-year-old white male in no distress Head: Atraumatic, normocephalic. HEENT:[Neck is supple.] [No neck masses.] [No thyromegaly.] [No JVD.] Nasog astric tube is in place. Chest: [Clear throughout, no crackles, no rhonchi, no wheezes.] Cardiac Exam: [Normal S1 and S2, no S3 gallop, no murmur.] Abdomen: [Soft, nontender, no megaly, no rebound, no guarding, abdomen is postsurgical, minimal tenderness, surgical dressing is dry and clean, good loco ction noted. Extremities: [No clubbing, no edema, no cyanosis.] Faint procedure and dorsalis pedis pulses bilaterally. Feet are warm to touch Neurological Exam: [No focal neurologic deficit.] Alert oriented 3. Psychiatric: Normal mood, affect and normal mental status examination. Skin: No rashes. - Labs CBC & Chem 7: 02/12/23 06:15 02/12/23 06:15 Labs: Abnormal Lab Results - Last 24 Hours (Table) 02/11/23 02/11/23 02/11/23 Range/Units 12:24 12:24 12:39 WBC 15.5 H (3.8-10.6) k/uL Plt Count (150-450) k/uL Neutrophils # 13.6 H (1.3-7.7) k/uL Monocytes # (0-1.0) k/uL Sodium 136 L (137-145) mmol/L Carbon Dioxide 21 L (22-30) mmol/L Creatinine 0.65 L (0.66-1.25) mg/dL Glucose 160 H (74-99) mg/dL POC Glucose (mg/dL) 162 H (70-110) mg/dL Calcium 7.6 L (8.4-10.2) mg/dL 02/11/23 02/11/23 02/12/23 Range/Units 15:30 18:46 06:14 WBC (3.8-10.6) k/uL Plt Count (150-450) k/uL Neutrophils # (1.3-7.7) k/uL Monocytes # (0-1.0) k/uL Sodium (137-145) mmol/L Carbon Dioxide (22-30) mmol/L Creatinine (0.66-1.25) mg/dL Glucose (74-99) mg/dL POC Glucose (mg/dL) 135 H 145 H 138 H (70-110) mg/dL Calcium (8.4-10.2) mg/dL 02/12/23 02/12/23 02/12/23 Range/Units 06:15 06:15 11:49 WBC 17.3 H (3.8-10.6) k/uL Plt Count 146 L (150-450) k/uL Neutrophils # 13.0 H (1.3-7.7) k/uL Monocytes # 1.3 H (0-1.0) k/uL Sodium 135 L (137-145) mmol/L Carbon Dioxide (22-30) mmol/L Creatinine 0.65 L (0.66-1.25) mg/dL Glucose 118 H (74-99) mg/dL POC Glucose (mg/dL) 116 H (70-110) mg/dL Calcium 7.9 L (8.4-10.2) mg/dL Assessment and Plan Assessment: Impression: Status post aortobifemoral bypass with [place]-Kwabena graft and aortic thromboendarterectomy, postoperative day #1. PO2 88 occlusion with chronic claudications. Tobacco dependence syndrome Benign essential hypertension Dyslipidemia Generalized anxiety disorder History of nephrolithiasis requiring surgery 3 Recommendation: Continue present supportive care measures Counseled regarding smoking cessation Continue incentive spirometry Continue to monitor daily labs and electrolytes. GI and DVT prophylaxis Could possibly transfer out of the ICU to a monitor bed on selective if cleared by vascular surgery. We will continue to follow. Time with Patient: Less than 30
[2023-02-12] MEDS: HYDROmorphone PCA 10 MG/50 ML BAG IV PRN (13:25)
[2023-02-12] MEDS: NITROGLYCERIN-D5W PMX 50 MG in DEXTROSE/WATER 1 250ML.BAG IV SCH (15:51)
[2023-02-12 16:55] LABS: Glucose,Whole Blood 131 mg/dL (70-110)
[2023-02-13 05:10] LABS: HCT 42.5 % (39.0-53.0); HGB 13.9 gm/dL (13.0-17.5); MCH 29.8 pg (25.0-35.0); MCHC 32.7 g/dL (31.0-37.0); MCV 91.1 fL (80.0-100.0); Mean Platelet Volume 9.4; Platelet Count 146 k/uL (150-450); RBC 4.66 m/uL (4.30-5.90); RDW 12.9 % (11.5-15.5); WBC 18.8 k/uL (3.8-10.6)
[2023-02-13 05:19] LABS: African American GFR (CKD) >90 (>60 ml/min/1.73 sqM); Anion Gap 7 mmol/L; Blood Urea Nitrogen 13 mg/dL (9-20); Calcium 7.8 mg/dL (8.4-10.2); Carbon Dioxide 23 mmol/L (22-30); Chloride 105 mmol/L (98-107); Glucose 104 mg/dL (74-99); Non-African American GFR(CKD) >90 (>60 ml/min/1.73 sqM); Potassium 3.6 mmol/L (3.5-5.1); Sodium 135 mmol/L (137-145)
[2023-02-13] MEDS: POTASSIUM CHLORIDE 10 MEQ in WATER FOR INJECTION 1 100ML.BAG IVPB SCH ×2 (06:18→08:06)
[2023-02-13] MEDS: HEPARIN SODIUM,PORCINE/PF 5,000 UNIT/0.5 ML SYRINGE SQ SCH ×2 (08:06→14:02)
--- NOTE | 2023-02-13 09:38 | P.PN ---
Subjective Progress Note Date: 02/13/23 Principal diagnosis: Status post aortobifemoral bypass with [place]-Kwabena graft and aortic thromboendarterectomy. Postoperative day #2 This is a pleasant 57-year-old male patient with known history of aortoiliac occlusive disease, atherosclerosis of the [place] arteries of the extremities with intermittent claudication in the bilateral legs, chronic and ongoing tobacco dependence, carotid stenosis. He was brought in electively today 02/11/2023 for an aorta bifemoral bypass with a 14 x 7 mm [place]-Kwabena graft and aortic thromboendarterectomy. He is seen in the intensive care unit in consultation. He is currently awake and maintain O2 saturations in the 90s on room air. He is requiring nitroglycerin drip at 25 mcg/m. Normal saline at 75 ML's per hour. His pain is controlled with Dilaudid and morphine as needed. He is on antibiotics in the form of cefazolin. Heparin for DVT prophylaxis. He currently has Doppler pulses. Prevena wound VAC in place to the abdomen and bi lateral groins. Chest x-ray revealed no evidence of pleural effusion, focal consolidation or pneumothorax. Right IJ triple-lumen catheter in place. Nasogastric tube in place. Patient was reevaluated today on 02/12/2023, remains in the ICU, he is doing great. Continues to have a nasogastric tube in place, he had some nausea with pain earlier this morning, has not had any bowel movements denies any shortness of breath or chest pain, he is hemodynamically stable, on room air with O2 saturation 92%. His nitroglycerin drip was discontinued earlier. Valdez catheter remains in place and he has good urine output. WBC count is 17.3 hemoglobin 4.4 electrodes are normal renal profile is normal. Reevaluated today on 02/13/2023, patient continues to do well, remains in the ICU, continues to have nasogastric tube in place. No bowel movements, patient seems to be fairly comfortable. He is on room air. WBC count is 18.8 hemoglobin 13.90 Electrolytes are normal renal profile is normal Objective - Vital Signs Vital signs: Vital Signs Temp 98.2 F 02/13/23 08:00 Pulse 100 02/13/23 08:30 Resp 15 02/13/23 08:30 BP 125/95 02/13/23 08:30 Pulse Ox 94 L 02/13/23 08:30 FiO2 Intake & Output 02/12/23 02/13/23 02/13/23 18:59 06:59 18:59 Intake Total 1405 1500 250 Output Total 1225 865 175 Balance 180 635 75 Weight 84.4 kg Intake: IV 1405 1500 250 Potassium Chloride 10 meq 100 In Water For Injection 1 100ml.bag @ 100 mls/hr IVPB Q1H [facility] Rx#: [id number] Sodium Chloride 0.9% 1, 1305 1500 250 000 ml @ 125 mls/hr IV . Q8H [facility] Rx#:[id number] Output: Gastric Drainage 150 Urine 1075 865 175 Other: Voiding Method Indwelling Catheter Indwelling Catheter Indwelling Catheter ABP, PAP, CO, CI - Last Documented Arterial Blood Pressure 142/80 - Exam Physical Exam: Revealed a 57-year-old white male in no distress, on room air. Head: Atraumatic, normocephalic. HEENT:[Neck is supple.] [No neck masses.] [No thyromegaly.] [No JVD.] Nasogastric tube is in place. Chest: [Clear throughout, no crackles, no rhonchi, no wheezes.] Cardiac Exam: [Normal S1 and S2, no S3 gallop, no murmur.] Abdomen: [Soft, nontender, no megaly, no rebound, no guarding, abdomen is postsurgical, minimal tenderness, surgical dressing is dry and clean, good suction noted. Extremities: [No clubbing, no edema, no cyanosis.] Faint procedure and dorsalis pedis pulses bilaterally. Feet are warm to touch Neurological Exam: [No focal neurologic deficit.] Alert oriented 3. Psychiatric: Normal mood, affect and normal mental status examination. Skin: No rashes. - Labs CBC & Chem 7: 02/13/23 04:39 02/13/23 04:39 Labs: Abnormal Lab Results - Last 24 Hours (Table) 02/12/23 02/12/23 02/13/23 Range/Units 11:49 16:54 04:39 WBC 18.8 H (3.8-10.6) k/uL Plt Count 146 L (150-450) k/uL Sodium (137-145) mmol/L Glucose (74-99) mg/dL POC Glucose (mg/dL) 116 H 131 H (70-110) mg/dL Calcium (8.4-10.2) mg/dL 02/13/23 Range/Units 04:39 WBC (3.8-10.6) k/uL Plt Count (150-450) k/uL Sodium 135 L (137-145) mmol/L Glucose 104 H (74-99) mg/dL POC Glucose (mg/dL) (70-110) mg/dL Calcium 7.8 L (8.4-10.2) mg/dL Assessment and Plan Assessment: Impression: Status post aortobifemoral bypass with [place]-Kwabena graft and aortic thromboendarterectomy, postoperative day #2 Peripheral vessel occlusive disease with claudications Tobacco dependence syndrome Benign essential hypertension Dyslipidemia Generalized anxiety disorder History of nephrolithiasis requiring surgery 3 Recommendation: Continue nasogastric tube to intermittent suction Continue present supportive care measures Continue incentive spirometry Continue to monitor daily labs and electrolytes. GI and DVT prophylaxis Could possibly transfer to a monitor bed on the cardiac floor. We will continue to follow. Time with Patient: Less than 30
[2023-02-13] MEDS ORDERED: bisacodyL 10 MG SUPP RECTAL PRN (11:00)
--- NOTE | 2023-02-13 11:02 | P.CONS ---
History of Present Illness - Reason for Consult Consult date: 02/13/23 - Chief Complaint medical management - History of Present Illness 57-year-old man with medical history of hyperlipidemia, peripheral arterial disease presented for claudication of his lower extremities. He was admitted by the vascular surgery service and taken to the OR for aortobifemoral bypass, and is now postop day 2 following this procedure. Medicine was consulted for medical management by the primary service. Last night, patient had shakes, sweats, tachycardia, and was started on IV fluids. He did also spiked a low- grade fever of 100.1. Per nursing report, patient still has not had a bowel movement, has put out approximately 300 mL of NG tube output in the last 24 hours, has good urine output. She had previously been requiring a nitroglycerin drip but this was discontinued yesterday. His pain control has been treated with Dilaudid FILM CRITIC pump. He has also had intermittent nausea treated with Zofran when necessary. On postop day 2, patient is afebrile, 125/95, heart rate 100, 94% on room air. CBC demonstrates elevated white blood cell count of 18.8, platelets of 146, re presenting stable findings. Basic metabolic panel shows a sodium of 135. Chest x-ray from 02/11 is reviewed and shows increased reticular infiltrates bilaterally. All Systems reviewed and pertinent positives and negatives noted in HPI, all other symptoms are negative Gen: in no apparent distress, resting comfortably in bed Eyes: PERRL, no scleral injection or icterus HENT: normocephalic, atraumatic, good hearing acuity, moist mucous membranes Neck: no tracheal deviation, full range of motion Resp: good air exchange, breathing comfortably with no accessory muscle use, no tactile fremitus CVS: good distal perfusion x 4, no pitting edema GI: soft, NTTP, ND, no hepatosplenomegaly, NG tube is present : no suprapubic tenderness, no CVAT, magdaleno catheter is present MSK: no clubbing, no cyanosis, no noted contractures of extremities, extremities are warm and appear to be perfusing well Skin: no noted rashes, petechiae; temperature of skin is appropriate Neuro: moving all extremities without signs of weakness, CN II-XII intact Psych: cooperative, euthymic mood, insight and judgment intact Labs and imaging as above Assessment: Status post aortobifemoral bypass, postop day 2 Peripheral arterial disease Leukocytosis Low grade Fever Tachycardia Hyperlipidemia Plan: Today, vitals have been reviewed as representing in HPI Lab work has been reviewed as representing in the HPI Chest x-ray from 02/11 was personally interpreted and noted in HPI Pulmonology note reviewed, continue nasogastric tube, incentive spirometry Continue IV fluids: Normal saline at 125 mL per hour Continue pain control: Dilaudid FILM CRITIC Add bowel regimen: Senokot-S 1 tab twice a day, MiraLAX 17 g daily, bisacodyl suppository 10 mg when necessary Repeat chest x-ray today given borderline room air oxygenation status and previously seen increased vascularity on chest x-ray, as well as ongoing IV fluid requirements Patient is full code DVT prophylaxis with heparin 3 times a day Past Medical History Past Medical History: Hyperlipidemia, Hypertension Additional Past Medical History / Comment(s): Hx kidney stones. History of Any Multi-Drug Resistant Organisms: None Reported Additional Past Surgical History / Comment(s): Oral surgery, kidney stone surgery X3. Past Anesthesia/Blood Transfusion Reactions: No Reported Reaction Past Psychological History: Anxiety Smoking Status: Current every day smoker Past Alcohol Use History: Rare Additional Past Alcohol Use History / Comment(s): Smokes 1ppd since age 15. Past Drug Use History: Marijuana Additional Drug Use History / Comment(s): Instructed to refrain from using Marijuana for 24 hours prior to surgery. - Past Family History Father Family Medical History: Congestive Heart Failure (CHF), CVA/TIA, Myocardial Infarction (NE) Medications and Allergies Home Medications Medication Instructions Recorded Confirmed Type atenoloL [Atenolol] 25 mg PO QAM 08/22/20 02/11/23 History Aspirin [Adult Low Dose Aspirin EC] 81 mg PO DAILY 01/19/23 02/11/23 History Rosuvastatin Calcium 40 mg PO HS 01/19/23 02/11/23 History Allergies Allergy/AdvReac Type Severity Reaction Status Date / Time No Known Allergies Allergy Verified 02/11/23 06:19 Physical Exam Osteopathic Statement: *. No significant issues noted on an osteopathic structural exam other than those noted in the History and Physical/Consult. Vitals: Vital Signs Temp Pulse Resp BP Pulse Ox 02/13/23 08:30 100 15 125/95 94 L 02/13/23 08:00 98.2 F 112 H 17 152/96 93 L 02/13/23 07:30 111 H 16 152/96 93 L 02/13/23 07:00 105 H 16 152/97 94 L 02/13/23 06:30 107 H 18 152/97 93 L 02/13/23 06:00 100 19 150/98 94 L 02/13/23 05:30 103 H 16 150/98 93 L 02/13/23 05:00 99.5 F 103 H 18 150/97 93 L 02/13/23 04:30 99 19 150/97 93 L 02/13/23 04:00 99 19 152/94 93 L 02/13/23 03:30 99 19 152/94 94 L 02/13/23 03:00 104 H 19 148/95 93 L 02/13/23 02:30 96 18 148/95 94 L 02/13/23 02:00 96 18 148/94 93 L 02/13/23 01:30 98 18 148/94 94 L 02/13/23 01:00 97 18 160/101 93 L 02/13/23 00:30 97 19 160/101 93 L 02/13/23 00:00 100.1 F H 98 20 155/88 93 L 02/12/23 23:36 112 H 17 155/88 93 L 02/12/23 23:30 96 18 155/88 92 L 02/12/23 23:00 98 17 154/96 92 L 02/12/23 22:30 105 H 20 154/96 92 L 02/12/23 22:00 87 20 178/100 94 L 02/12/23 21:30 96 21 178/100 92 L 02/12/23 21:00 95 19 166/98 92 L 02/12/23 20:30 91 20 166/98 90 L 02/12/23 20:00 98.2 F 92 21 145/99 92 L 02/12/23 19:30 94 20 145/99 93 L 02/12/23 19:00 91 17 92 L 02/12/23 18:30 92 18 92 L 02/12/23 18:00 90 19 141/88 91 L 02/12/23 17:30 108 H 16 141/88 93 L 02/12/23 17:00 95 19 150/84 92 L 02/12/23 16:30 83 21 150/84 92 L 02/12/23 16:00 98.2 F 102 H 20 125/73 92 L 02/12/23 15:30 80 17 125/73 93 L 02/12/23 15:00 73 17 120/69 94 L 02/12/23 14:30 73 16 120/69 93 L 02/12/23 14:00 87 15 160/95 94 L 02/12/23 13:30 77 20 160/95 95 02/12/23 13:00 79 18 142/89 93 L 02/12/23 12:30 74 17 142/89 93 L 02/12/23 12:12 93 L 02/12/23 12:00 98.7 F 90 23 142/83 95 02/12/23 11:30 72 17 142/83 93 L 02/12/23 11:00 78 19 148/86 93 L Intake and Output 02/12/23 02/13/23 02/13/23 22:59 06:59 14:59 Intake Total 1080 1000 250 Output Total 655 600 175 Balance 425 400 75 Intake: IV 1080 1000 250 Sodium Chloride 0.9% 1, 1080 1000 250 000 ml @ 125 mls/hr IV . Q8H [facility] Rx#:[id number] Output: Urine 655 600 175 Other: Voiding Method Indwelling Catheter Indwelling Catheter Indwelling Catheter Weight 84.4 kg ABP, PAP, CO, CI - Last 8 Hours Arterial Blood Pressure 142/80 Arterial Blood Pressure 136/75 Arterial Blood Pressure 140/75 Arterial Blood Pressure 143/80 Arterial Blood Pressure 140/75 Arterial Blood Pressure 143/79 Arterial Blood Pressure 139/77 Arterial Blood Pressure 142/82 Arterial Blood Pressure 147/80 Arterial Blood Pressure 146/77 Arterial Blood Pressure 147/81 Arterial Blood Pressure 136/77 Results CBC & Chem 7: 02/13/23 04:39 02/13/23 04:39 Labs: Abnormal Lab Results - Last 24 Hours (Table) 02/12/23 02/12/23 02/13/23 Range/Units 11:49 16:54 04:39 WBC 18.8 H (3.8-10.6) k/uL Plt Count 146 L (150-450) k/uL Sodium (137-145) mmol/L Glucose (74-99) mg/dL POC Glucose (mg/dL) 116 H 131 H (70-110) mg/dL Calcium (8.4-10.2) mg/dL 02/13/23 Range/Units 04:39 WBC (3.8-10.6) k/uL Plt Count (150-450) k/uL Sodium 135 L (137-145) mmol/L Glucose 104 H (74-99) mg/dL POC Glucose (mg/dL) (70-110) mg/dL Calcium 7.8 L (8.4-10.2) mg/dL
[2023-02-13] MEDS: SODIUM CHLORIDE 0.9% 1,000 ML IV SCH ×2 (11:20→18:42)
[2023-02-13] MEDS: SENNOSIDES-DOCUSATE SODIUM 1 EACH TAB PO SCH ×2 (11:27→20:40)
[2023-02-13] MEDS: polyethylene glycoL 3350 17 GM POWD.PACK PO SCH (11:27)
[2023-02-13 12:37] LABS: Glucose,Whole Blood 136 mg/dL (70-110)
--- NOTE | 2023-02-13 13:20 | XR ---
EXAMINATION TYPE: XR chest 1V portable DATE OF EXAM: 02/13/2023 COMPARISON: 02/11/2023 INDICATION: Hypoxia TECHNIQUE: Single frontal view of the chest is obtained. FINDINGS: The heart size is normal. The pulmonary vasculature is normal. The lungs are clear. Nasogastric tube transverses the thorax tip in the proximal left upper quadrant of the abdomen. Right central venous catheter is present with the tip in the right atrium. IMPRESSION: 1. No acute pulmonary process. 2. Lines and catheters discussed above
[2023-02-13] MEDS: NITROGLYCERIN-D5W PMX 50 MG in DEXTROSE/WATER 1 250ML.BAG IV SCH (15:21)
[2023-02-13 16:52] LABS: Glucose,Whole Blood 108 mg/dL (70-110)
[2023-02-13] MEDS: ONDANSETRON 4 MG/2 ML VIAL IVP PRN (20:39)
[2023-02-13 23:52] LABS: Glucose,Whole Blood 128 mg/dL (70-110)
[2023-02-14] MEDS: HEPARIN SODIUM,PORCINE/PF 5,000 UNIT/0.5 ML SYRINGE SQ SCH ×3 (01:05→16:31)
[2023-02-14] MEDS: SODIUM CHLORIDE 0.9% 1,000 ML IV SCH ×4 (05:08→21:04)
[2023-02-14] MEDS: ONDANSETRON 4 MG/2 ML VIAL IVP PRN ×3 (05:40→21:04)
[2023-02-14 06:07] LABS: Glucose,Whole Blood 154 mg/dL (70-110)
[2023-02-14] MEDS: polyethylene glycoL 3350 17 GM POWD.PACK PO SCH (08:17)
[2023-02-14] MEDS: SENNOSIDES-DOCUSATE SODIUM 1 EACH TAB PO SCH ×2 (08:17→21:04)
[2023-02-14] MEDS: HYDROmorphone PCA 10 MG/50 ML BAG IV PRN (08:25)
[2023-02-14 12:09] LABS: Glucose,Whole Blood 131 mg/dL (70-110)
--- NOTE | 2023-02-14 12:45 | P.PN ---
Subjective Progress Note Date: 02/14/23 57-year-old man with medical history of hyperlipidemia, peripheral arterial disease presented for claudication of his lower extremities. He was admitted by the vascular surgery service and taken to the OR for aortobifemoral bypass, and is now postop day 2 following this procedure. Medicine was consulted for medical management by the primary service. Last night, patient had shakes, sweats, tachycardia, and was started on IV fluids. He did also spiked a low- grade fever of 100.1. Per nursing report, patient still has not had a bowel movement, has put out approximately 300 mL of NG tube output in the last 24 hours, has good urine output. She had previously been requiring a nitroglycerin drip but this was discontinued yesterday. His pain control has been treated with Dilaudid CONTACT LENS CUTTER pump. He has also had intermittent nausea treated with Zofran when necessary. 02/14. Patient seen and examined. Postop day 3. Patient still has NG tube in. Still having nausea but denies any abdominal pain. Patient wants NG tube to be removed. REVIEW OF SYSTEMS: CONSTITUTIONAL: No fever, no malaise,. CARDIOVASCULAR: No chest pain, no palpitations, no syncope. PULMONARY: No shortness of breath, no cough, GASTROINTESTINAL: As mentioned above NEUROLOGICAL: No headaches, no weakness, PHYSICAL EXAMINATION: GENERAL: The patient is alert and oriented x3, not in any acute distress. Well developed, well nourished. NG tube in place HEENT: Pupils are round and equally reacting to light. EOMI. No scleral icterus. No conjunctival pallor. Normocephalic, atraumatic. No pharyngeal erythema. No thyromegaly. CARDIOVASCULAR: S1 and S2 present. No murmurs, rubs, or gallops. PULMONARY: Chest is clear to auscultation, no wheezing or crackles. ABDOMEN: Soft, nontender, nondistended, normoactive bowel sounds. No palpable organomegaly. MUSCULOSKELETAL: No joint swelling or deformity. EXTREMITIES: No cyanosis, clubbing, or pedal edema. NEUROLOGICAL: Gross neurological examination did not reveal any focal deficits. SKIN: No rashes. Assessment and plan Status post aortobifemoral bypass with [place]-Kwabena graft and aortic thromboendarterectomy, postoperative day #2 Peripheral vessel occlusive disease with claudications Tobacco dependence syndrome Benign essential hypertension Dyslipidemia Generalized anxiety disorder History of nephrolithiasis requiring surgery 3 Plan; Monitor vital signs Monitor CBC Monitor CMP Aggressive bronchopulmonary hygiene Continue telemetry monitoring continue pain management per surgery Aggressive bowel regimen Continue rest of treatment for now Objective - Vital Signs Vital signs: Vital Signs Temp 97.5 F L 02/14/23 08:10 Pulse 95 02/14/23 08:10 Resp 16 02/14/23 08:10 BP 137/76 02/14/23 08:10 Pulse Ox 95 02/14/23 08:10 FiO2 Intake & Output 02/13/23 02/14/23 02/14/23 18:59 06:59 18:59 Intake Total 1125 1000 Output Total 574 500 550 Balance 551 -500 450 Intake: IV 1125 1000 Sodium Chloride 0.9% 1, 1125 1000 000 ml @ 125 mls/hr IV . [facility] Rx#:[id number] Output: Urine 574 500 550 Other: Voiding Method Indwelling Catheter Urinal ABP, PAP, CO, CI - Last Documented Arterial Blood Pressure 156/81 - Labs CBC & Chem 7: 02/13/23 04:39 02/13/23 04:39 Labs: Abnormal Lab Results - Last 24 Hours (Table) 02/13/23 02/14/23 02/14/23 Range/Units 23:49 06:06 12:07 POC Glucose (mg/dL) 128 H 154 H 131 H (70-110) mg/dL
--- NOTE | 2023-02-14 13:30 | P.PN ---
Subjective Progress Note Date: 02/14/23 Principal diagnosis: Status post aortobifemoral bypass with [place]-Kwabena graft and aortic thromboendarterectomy. 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 He was brought in electively today 02/11/2023 for an aorta bifemoral bypass with a 14 x 7 mm [place]-Kwabena graft and aortic thromboendarterectomy. He is seen in the intensive care unit in consultation. He is currently awake and maintain O2 saturations in the 90s on room air. He is requiring nitroglycerin drip at 25 mcg/m. Normal saline at 75 ML's per hour. His pain is controlled with Dilaudid and morphine as needed. He is on antibiotics in the form of cefazolin. Heparin for DVT prophylaxis. He currently has Doppler pulses. Prevena wound VAC in place to the abdomen and bi lateral groins. Chest x-ray revealed no evidence of pleural effusion, focal consolidation or pneumothorax. Right IJ triple-lumen catheter in place. Nasogastric tube in place. Patient was reevaluated today on 02/12/2023, remains in the ICU, he is doing great. Continues to have a nasogastric tube in place, he had some nausea with pain earlier this morning, has not had any bowel movements denies any shortness of breath or chest pain, he is hemodynamically stable, on room air with O2 saturation 92%. His nitroglycerin drip was discontinued earlier. Valdez catheter remains in place and he has good urine output. WBC count is 17.3 hemoglobin 4.4 electrodes are normal renal profile is normal. Reevaluated today on 02/13/2023, patient continues to do well, remains in the ICU, continues to have nasogastric tube in place. No bowel movements, patient seems to be fairly comfortable. He is on room air. WBC count is 18.8 hemoglobin 13.90 Electrolytes are normal renal profile is normal Reevaluated today on 02/14/2023, patient is now postoperative day #3, continues to have nasogastric tube in place, he has intermittent episodes of nausea, no abdominal pain, surgery to decide on the discontinuation of nasogastric tube, patient has not had any bowel movements. Pulmonary-franco the patient is doing great, asymptomatic, no cough no wheezing no shortness of breath, he is on room air, and O2 sats is 95%. Objective - Vital Signs Vital signs: Vital Signs Temp 97.5 F L 02/14/23 08:10 Pulse 95 02/14/23 08:10 Resp 16 02/14/23 08:10 BP 137/76 02/14/23 08:10 Pulse Ox 95 02/14/23 08:10 FiO2 Intake & Output 02/13/23 02/14/23 02/14/23 18:59 06:59 18:59 Intake Total 1125 1000 Output Total 574 500 550 Balance 551 -500 450 Intake: IV 1125 1000 Sodium Chloride 0.9% 1, 1125 1000 000 ml @ 125 mls/hr IV . Q8[facility] Rx#:[id number] Output: Urine 574 500 550 Other: Voiding Method Indwelling Catheter Urinal ABP, PAP, CO, CI - Last Documented Arterial Blood Pressure 156/81 - Exam Physical Exam: Revealed a 57-year-old white male in no distress, on room air. Head: Atraumatic, normocephalic. Nasogastric tube in place. HEENT:[Neck is supple.] [No neck masses.] [No thyromegaly.] [No JVD.] Chest: [Clear throughout, no crackles, no rhonchi, no wheezes.] Cardiac Exam: [Normal S1 and S2, no S3 gallop, no murmur.] Abdomen: [Soft, nontender, no megaly, no rebound, no guarding, abdomen is postsurgical, minimal tenderness, surgical dressing is dry and clean, good suction noted. Extremities: [No clubbing, no edema, no cyanosis.] Faint procedure and dorsalis pedis pulses bilaterally. Feet are warm to touch Neurological Exam: [No focal neurologic deficit.] Alert oriented 3. Psychiatric: Normal mood, affect and normal mental status examination. Skin: No rashes. - Labs CBC & Chem 7: 02/13/23 04:39 02/13/23 04:39 Labs: Abnormal Lab Results - Last 24 Hours (Table) 02/13/23 02/14/23 02/14/23 Range/Units 23:49 06:06 12:07 POC Glucose (mg/dL) 128 H 154 H 131 H (70-110) mg/dL Assessment and Plan Assessment: Impression: Status post aortobifemoral bypass with [place]-Kwabena graft and aortic thro mboendarterectomy, postoperative day #3 Peripheral vessel occlusive disease with claudications Tobacco dependence syndrome Benign essential hypertension Dyslipidemia Generalized anxiety disorder History of nephrolithiasis requiring surgery 3 Recommendation: Surgery to decide on his nasogastric tube. Continue present supportive care measures Continue incentive spirometry GI and DVT prophylaxis No active pulmonary issues on this patient, we will sign off and evaluate as needed Time with Patient: Less than 30
--- NOTE | 2023-02-14 14:19 | P.PN ---
Subjective Progress Note Date: 02/13/23 Principal diagnosis: Aortic occlusion Patient seen and examined the bedside. He states he is doing well and his feet feel better since the surgery. He does complain of nausea intermittently without any vomiting. He would like to have his NG tube removed if possible. He denies any fevers, chills, chest pain or shortness of breath. Patient states he has had flatus 3 earlier today. Objective - Vital Signs Vital signs: Vital Signs Temp 98 F 02/14/23 12:00 Pulse 87 02/14/23 12:00 Resp 16 02/14/23 12:00 BP 133/76 02/14/23 12:00 Pulse Ox 96 02/14/23 12:00 FiO2 Intake & Output 02/13/23 02/14/23 02/14/23 18:59 06:59 18:59 Intake Total 1125 1000 Output Total 574 500 550 Balance 551 -500 450 Intake: IV 1125 1000 Sodium Chloride 0.9% 1, 1125 1000 000 ml @ 125 mls/hr IV . Q8H [facility] Rx#:[id number] Output: Urine 574 500 550 Other: Voiding Method Indwelling Catheter Urinal ABP, PAP, CO, CI - Last Documented Arterial Blood Pressure 156/81 - Exam NG tube in place to low intermittent suction. Minimal output is noted. Patient with ice bags. Head and neck Midline incision with Prevena VAC is intact. Moderate tenderness to palpation of the abdomen around the incision sites. No signs of hematoma or infection. Feet are warm bilaterally. Palpable PT pulse bilaterally. Multiphasic DP signals noted - Constitutional General appearance: Present: mild distress - EENT Eyes: Present: PERRLA - Respiratory Respiratory: bilateral: CTA - Cardiovascular Rhythm: regular - Labs CBC & Chem 7: 02/13/23 04:39 02/13/23 04:39 Labs: Abnormal Lab Results - Last 24 Hours (Table) 02/13/23 02/14/23 02/14/23 Range/Units 23:49 06:06 12:07 POC Glucose (mg/dL) 128 H 154 H 131 H (70-110) mg/dL Assessment and Plan Assessment: Postoperative aortobifemoral bypass with [place]-Kwabena graft and aortic thromboendarterectomy Aortoiliac occlusive disease with lifestyle limiting claudication Tobacco abuse Hypertension Hyperlipidemia Plan: Continue NG tube to LIS due to patient still having nausea. Discussed with the patient to increase his activity ambulate. Continue IV fluids. 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
--- NOTE | 2023-02-14 14:21 | P.PN ---
Subjective Progress Note Date: 02/14/23 Principal diagnosis: Aortic occlusion Patient seen and examined the bedside. He states his nausea has improved. He has not been up out of bed as of yet. His pain is controlled with INFECTIOUS DISEASE PHYSICIAN pump. He denies any fevers, chills, chest pain or shortness of breath. Patient states he is having flatus but no BM. Objective - Vital Signs Vital signs: Vital Signs Temp 98 F 02/14/23 12:00 Pulse 87 02/14/23 12:00 Resp 16 02/14/23 12:00 BP 133/76 02/14/23 12:00 Pulse Ox 96 02/14/23 12:00 FiO2 Intake & Output 02/13/23 02/14/23 02/14/23 18:59 06:59 18:59 Intake Total 1125 1000 Output Total 574 500 550 Balance 551 -500 450 Intake: IV 1125 1000 Sodium Chloride 0.9% 1, 1125 1000 000 ml @ 125 mls/hr IV . Q8[facility] Rx#:[id number] Output: Urine 574 500 550 Other: Voiding Method Indwelling Catheter Urinal ABP, PAP, CO, CI - Last Documented Arterial Blood Pressure 156/81 - Exam NG tube in place to low intermittent suction. Minimal output is noted. Midline incision with Prevena VAC is intact. Moderate tenderness to palpation of the abdomen around the incision sites. No signs of hematoma or infection. Feet are warm bilaterally. Palpable PT pulse bilaterally. Multiphasic DP signals noted - Labs CBC & Chem 7: 02/13/23 04:39 02/13/23 04:39 Labs: Abnormal Lab Results - Last 24 Hours (Table) 02/13/23 02/14/23 02/14/23 Range/Units 23:49 06:06 12:07 POC Glucose (mg/dL) 128 H 154 H 131 H (70-110) mg/dL Assessment and Plan Assessment: Postoperative aortobifemoral bypass with [place]-Kwabena graft and aortic thromboendarterectomy Aortoiliac occlusive disease with lifestyle limiting claudication Tobacco abuse Hypertension Hyperlipidemia Plan: Continue NG tube to LIS- discussed clamping but patient would like it to continue till tomorrow morning. Discussed with the patient to increase his activity ambulate. Continue IV fluids. INFECTIOUS DISEASE PHYSICIAN pump in place and is to continue for pain management
[2023-02-14 18:04] LABS: Glucose,Whole Blood 112 mg/dL (70-110)
[2023-02-15] LABS: Glucose,Whole Blood 115 mg/dL (70-110)
[2023-02-15] MEDS: HEPARIN SODIUM,PORCINE/PF 5,000 UNIT/0.5 ML SYRINGE SQ SCH ×3 (00:53→15:12)
[2023-02-15 06:05] LABS: Glucose,Whole Blood 103 mg/dL (70-110)
[2023-02-15 07:27] LABS: HGB 12.6 gm/dL (13.0-17.5); MCH 30.6 pg (25.0-35.0); MCV 92.8 fL (80.0-100.0); Mean Platelet Volume 8.4; Platelet Count 163 k/uL (150-450); RDW 12.8 % (11.5-15.5); WBC 13.6 k/uL (3.8-10.6)
[2023-02-15 07:37] LABS: ALT 20 U/L (4-49); AST 21 U/L (17-59); African American GFR (CKD) >90 (>60 ml/min/1.73 sqM); Albumin 2.7 g/dL (3.5-5.0); Alkaline Phosphatase 80 U/L (38-126); Anion Gap 8 mmol/L; Blood Urea Nitrogen 17 mg/dL (9-20); Calcium 7.8 mg/dL (8.4-10.2); Carbon Dioxide 23 mmol/L (22-30); Chloride 109 mmol/L (98-107); Glucose 98 mg/dL (74-99); Non-African American GFR(CKD) >90 (>60 ml/min/1.73 sqM); Potassium 3.2 mmol/L (3.5-5.1); Sodium 140 mmol/L (137-145); Total Bilirubin 1.1 mg/dL (0.2-1.3)
[2023-02-15] MEDS ORDERED: Potassium Replacement Protocol 1 EACH MISC MISCELLANE PRN (07:51)
[2023-02-15] MEDS: SODIUM CHLORIDE 0.9% 1,000 ML IV SCH ×2 (08:44→15:12)
[2023-02-15] MEDS: polyethylene glycoL 3350 17 GM POWD.PACK PO SCH (08:44)
[2023-02-15] MEDS: POTASSIUM CHLORIDE ER 20 MEQ TAB.ER PO SCH ×2 (08:44→09:32)
[2023-02-15] MEDS: SENNOSIDES-DOCUSATE SODIUM 1 EACH TAB PO SCH ×2 (08:44→21:05)
[2023-02-15] MEDS: HYDROcodone/APAP 5-325MG 1 EACH TAB PO PRN (11:28)
--- NOTE | 2023-02-15 11:41 | P.PN ---
Subjective Progress Note Date: 02/15/23 Patient is seen and examined today as a follow-up. He is postop day #4 for aortobifemoral bypass with [place]-Kwabena graft and aortic thromboendarterectomy. Was notified by nursing that patient either pulled out his NG tube this morning or fell out. Patient states that had fallen out. He had minimal output from NG tube. Patient states he is passing flatus, no bowel movement. Denies any nausea or vomiting. Valdez catheter has been discontinued and patient is voiding without difficulty. He has not been up or ambulating. Incentive spirometer at bedside. Patient is afebrile. WBC 13.6 hemoglobin 12.6 platelet count 163,000 sodium 140 potassium 3.2 BUN 17 creatinine 0.5 Objective - Vital Signs Vital signs: Vital Signs Temp 98.3 F 02/15/23 04:00 Pulse 84 02/15/23 04:00 Resp 16 02/15/23 04:00 BP 159/81 02/15/23 04:00 Pulse Ox 96 02/15/23 04:00 FiO2 Intake & Output 02/14/23 02/15/23 02/15/23 18:59 06:59 18:59 Intake Total 2000 0 Output Total 550 550 Balance 1450 -550 Intake: IV 2000 Sodium Chloride 0.9% 1, 2000 000 ml @ 125 mls/hr IV . Q8H [facility] Rx#:[id number] Oral 0 Output: Gastric Drainage 100 Urine 550 450 ABP, PAP, CO, CI - Last Documented Arterial Blood Pressure 156/81 - Exam General appearance: The patient is alert, oriented, appears in no acute distress. HET: Head is normocephalic and atraumatic. Pupils are equal and reactive. Neck: Supple. Heart: Regular. Lungs: Equal expansion, normal respiratory effort. Abdomen: Soft, nontender, nondistended, with midline dressing vac in place with good suction. Sluggish bowel sounds. Extremities: Normal skin color and turgor. Palpable PT pulses bilaterally. Feet warm to the touch, sensorimotor intact, good capillary refill. Neurological: No focal deficits. Strength and sensation are grossly intact. - Labs CBC & Chem 7: 02/15/23 06:59 02/15/23 06:59 Labs: Abnormal Lab Results - Last 24 Hours (Table) 02/14/23 02/14/23 02/14/23 Range/Units 12:07 18:01 23:58 WBC (3.8-10.6) k/uL RBC (4.30-5.90) m/uL Hgb (13.0-17.5) gm/dL Hct (39.0-53.0) % Potassium (3.5-5.1) mmol/L Chloride (98-107) mmol/L Creatinine (0.66-1.25) mg/dL POC Glucose (mg/dL) 131 H 112 H 115 H (70-110) mg/dL Calcium (8.4-10.2) mg/dL Total Protein (6.3-8.2) g/dL Albumin (3.5-5.0) g/dL 02/15/23 02/15/23 Range/Units 06:59 06:59 WBC 13.6 H (3.8-10.6) k/uL RBC 4.10 L (4.30-5.90) m/uL Hgb 12.6 L (13.0-17.5) gm/dL Hct 38.0 L (39.0-53.0) % Potassium 3.2 L (3.5-5.1) mmol/L Chloride 109 H (98-107) mmol/L Creatinine 0.59 L (0.66-1.25) mg/dL POC Glucose (mg/dL) (70-110) mg/dL Calcium 7.8 L (8.4-10.2) mg/dL Total Protein 5.0 L (6.3-8.2) g/dL Albumin 2.7 L (3.5-5.0) g/dL Assessment and Plan Assessment: 1. Postop day #4 for aortobifemoral bypass with [place]ore kwabena graft and aortic thromboendarterectomy 2. Aorto iliac occlusion with lifestyle omitting claudication 3. Tobacco abuse 4. Hypertension 5. Hyperlipidemia Plan: 1. Continue to educate and encourage use of incentive spirometer 2. Daily CBC, BMP 3. Discontinue Dilaudid SHOW OPERATIONS SUPERVISOR pump, transition to oral pain medication and IV push as needed for severe breakthrough pain. 4. Keep NG tube out 5. Clear liquid diet 6. And ensure clear 7. Continue IV fluids for now 8. Keep SCDs in place 9. Medical management per primary medical team 10. Consult to physical therapy 11. Encourage ambulation The impression and plan of care has been dictated as directed. I performed a history and examination of this patient, discussed the same with the dictator. I agree with the dictator's note ,documented as a scribe. Any additional findings or plans will be noted.
--- NOTE | 2023-02-15 14:04 | P.PN ---
Subjective Progress Note Date: 02/15/23 57-year-old man with medical history of hyperlipidemia, peripheral arterial disease presented for claudication of his lower extremities. He was admitted by the vascular surgery service and taken to the OR for aortobifemoral bypass, and is now postop day 2 following this procedure. Medicine was consulted for medical management by the primary service. Last night, patient had shakes, sweats, tachycardia, and was started on IV fluids. He did also spiked a low- grade fever of 100.1. Per nursing report, patient still has not had a bowel movement, has put out approximately 300 mL of NG tube output in the last 24 hours, has good urine output. She had previously been requiring a nitroglycerin drip but this was discontinued yesterday. His pain control has been treated with Dilaudid EDGE DRUMMER pump. He has also had intermittent nausea treated with Zofran when necessary. 02/14. Patient seen and examined. Postop day 3. Patient still has NG tube in. Still having nausea but denies any abdominal pain. Patient wants NG tube to be removed. 02/15. Patient seen and examined. NG tube was removed, currently on clear liquid diet REVIEW OF SYSTEMS: CONSTITUTIONAL: No fever, no malaise,. CARDIOVASCULAR: No chest pain, no palpitations, no syncope. PULMONARY: No shortness of breath, no cough, GASTROINTESTINAL: As mentioned above NEUROLOGICAL: No headaches, no weakness, PHYSICAL EXAMINATION: GENERAL: The patient is alert and oriented x3, not in any acute distress. Well developed, well nourished. NG tube in place HEENT: Pupils are round and equally reacting to light. EOMI. No scleral icterus. No conjunctival pallor. Normocephalic, atraumatic. No pharyngeal erythema. No th yromegaly. CARDIOVASCULAR: S1 and S2 present. No murmurs, rubs, or gallops. PULMONARY: Chest is clear to auscultation, no wheezing or crackles. ABDOMEN: Soft, nontender, nondistended, normoactive bowel sounds. No palpable organomegaly. Abdominal incision seen MUSCULOSKELETAL: No joint swelling or deformity. EXTREMITIES: No cyanosis, clubbing, or pedal edema. NEUROLOGICAL: Gross neurological examination did not reveal any focal deficits. SKIN: No rashes. Assessment and plan Status post aortobifemoral bypass with [place]-Kwabena graft and aortic thromboendarterectomy, postoperative day #2 Peripheral vessel occlusive disease with claudications Tobacco dependence syndrome Benign essential hypertension Dyslipidemia Generalized anxiety disorder History of nephrolithiasis requiring surgery 3 Plan; Monitor vital signs Monitor CBC Monitor CMP Aggressive bronchopulmonary hygiene Continue telemetry monitoring continue pain management per surgery Aggressive bowel regimen Continue rest of treatment for now Consult PT OT Objective - Vital Signs Vital signs: Vital Signs Temp 98.2 F 02/15/23 11:47 Pulse 73 02/15/23 11:47 Resp 16 02/15/23 11:47 BP 158/79 02/15/23 11:47 Pulse Ox 98 02/15/23 11:47 FiO2 Intake & Output 02/14/23 02/15/23 02/15/23 18:59 06:59 18:59 Intake Total 2000 0 540 Output Total 550 550 500 Balance 1450 -550 40 Intake: IV 2000 Sodium Chloride 0.9% 1, 2000 000 ml @ 125 mls/hr IV . Q8H [facility] Rx#:[id number] Oral 0 540 Output: Gastric Drainage 100 Urine 550 450 500 Other: Voiding Method Urinal # Voids 1 ABP, PAP, CO, CI - Last Documented Arterial Blood Pressure 156/81 - Labs CBC & Chem 7: 02/15/23 06:59 02/15/23 06:59 Labs: Abnormal Lab Results - Last 24 Hours (Table) 02/14/23 02/14/23 02/15/23 Range/Units 18:01 23:58 06:59 WBC 13.6 H (3.8-10.6) k/uL RBC 4.10 L (4.30-5.90) m/uL Hgb 12.6 L (13.0-17.5) gm/dL Hct 38.0 L (39.0-53.0) % Potassium (3.5-5.1) mmol/L Chloride (98-107) mmol/L Creatinine (0.66-1.25) mg/dL POC Glucose (mg/dL) 112 H 115 H (70-110) mg/dL Calcium (8.4-10.2) mg/dL Total Protein (6.3-8.2) g/dL Albumin (3.5-5.0) g/dL 02/15/23 Range/Units 06:59 WBC (3.8-10.6) k/uL RBC (4.30-5.90) m/uL Hgb (13.0-17.5) gm/dL Hct (39.0-53.0) % Potassium 3.2 L (3.5-5.1) mmol/L Chloride 109 H (98-107) mmol/L Creatinine 0.59 L (0.66-1.25) mg/dL POC Glucose (mg/dL) (70-110) mg/dL Calcium 7.8 L (8.4-10.2) mg/dL Total Protein 5.0 L (6.3-8.2) g/dL Albumin 2.7 L (3.5-5.0) g/dL
[2023-02-15 14:19] VITALS: BMI 26.6
[2023-02-15] MEDS: HYDROmorphone 0.5 MG/0.5 ML SYRINGE IVP PRN (17:24)
[2023-02-16] MEDS: HEPARIN SODIUM,PORCINE/PF 5,000 UNIT/0.5 ML SYRINGE SQ SCH ×4 (01:06→23:33)
[2023-02-16] MEDS: SODIUM CHLORIDE 0.9% 1,000 ML IV SCH ×2 (01:06→16:26)
[2023-02-16 07:53] LABS: HGB 12.2 gm/dL (13.0-17.5); MCH 31.9 pg (25.0-35.0); MCHC 34.7 g/dL (31.0-37.0); MCV 91.7 fL (80.0-100.0); Mean Platelet Volume 8.4; Platelet Count 164 k/uL (150-450); RBC 3.82 m/uL (4.30-5.90); RDW 12.6 % (11.5-15.5); WBC 11.1 k/uL (3.8-10.6)
[2023-02-16 08:02] LABS: African American GFR (CKD) >90 (>60 ml/min/1.73 sqM); Anion Gap 4 mmol/L; Blood Urea Nitrogen 11 mg/dL (9-20); Calcium 7.5 mg/dL (8.4-10.2); Carbon Dioxide 27 mmol/L (22-30); Chloride 105 mmol/L (98-107); Glucose 97 mg/dL (74-99); Non-African American GFR(CKD) >90 (>60 ml/min/1.73 sqM); Potassium 3.1 mmol/L (3.5-5.1); Sodium 136 mmol/L (137-145)
[2023-02-16] MEDS: polyethylene glycoL 3350 17 GM POWD.PACK PO SCH (09:37)
[2023-02-16] MEDS: SENNOSIDES-DOCUSATE SODIUM 1 EACH TAB PO SCH ×2 (09:37→20:17)
[2023-02-16] MEDS: POTASSIUM CHLORIDE ER 20 MEQ TAB.ER PO SCH ×2 (09:38→13:15)
--- NOTE | 2023-02-16 11:16 | P.PN ---
Subjective Progress Note Date: 02/16/23 Patient is seen and examined today as a follow-up. He is postop day #5 for aortobifemoral bypass with [place]-Kwabena graft and aortic thromboendarterectomy. Yesterday he was up and cut into the chair. TIRE SHOP MECHANIC was discontinued. There was some issues with his per been wound dressing therefore it was removed and p atient currently has APD in place. He states he has had 2 bowel movements, passing flatus. No nausea or vomiting and tolerating clear liquid diet. Patient has been afebrile. WBC continues to trend down. Repeat potassium this morning 3.1. Patient denies any shortness of breath, chest pain, nausea or vomiting. No fevers or chills. He does report surgical pain at the abdominal incision site. Objective - Vital Signs Vital signs: Vital Signs Temp 98 F 02/16/23 08:00 Pulse 64 02/16/23 08:00 Resp 18 02/16/23 08:00 BP 136/73 02/16/23 08:00 Pulse Ox 97 02/16/23 08:00 FiO2 Intake & Output 02/15/23 02/16/23 02/16/23 18:59 06:59 18:59 Intake Total 1080 120 Output Total 500 650 320 Balance 580 -650 -200 Weight 84.4 kg Intake: Oral 1080 120 Output: Urine 500 650 320 Other: Voiding Method Urinal Urinal # Voids 1 # Bowel Movements 1 ABP, PAP, CO, CI - Last Documented Arterial Blood Pressure 156/81 - Exam General appearance: The patient is alert, oriented, appears in no acute distress. HET: Head is normocephalic and atraumatic. Pupils are equal and reactive. Neck: Supple. Heart: Regular. Lungs: Equal expansion, normal respiratory effort. Abdomen: Soft, nontender, nondistended, with midline ABD dressing clean dry and intact. Sluggish bowel sounds. Extremities: Normal skin color and turgor. Palpable PT pulses bilaterally. Feet warm to the touch, sensorimotor intact, good capillary refill. Neurological: No focal deficits. Strength and sensation are grossly intact. - Labs CBC & Chem 7: 02/16/23 07:36 02/16/23 07:36 Labs: Abnormal Lab Results - Last 24 Hours (Table) 02/16/23 02/16/23 Range/Units 07:36 07:36 WBC 11.1 H (3.8-10.6) k/uL RBC 3.82 L (4.30-5.90) m/uL Hgb 12.2 L (13.0-17.5) gm/dL Hct 35.0 L (39.0-53.0) % Sodium 136 L (137-145) mmol/L Potassium 3.1 L (3.5-5.1) mmol/L Creatinine 0.52 L (0.66-1.25) mg/dL Calcium 7.5 L (8.4-10.2) mg/dL Assessment and Plan Assessment: 1. Postop day #5 for aortobifemoral bypass with gore kwabena graft and aortic thromboendarterectomy 2. Aorto iliac occlusion with lifestyle omitting claudication 3. Tobacco abuse 4. Hypertension 5. Hyperlipidemia Plan: 1. Continue to educate and encourage use of incentive spirometer 2. Daily CBC, BMP 3. Continue oral pain medication and IV push as needed for severe breakthrough pain. 4. Advance to full liquid diet, if patient tolerates may advance to heart healthy diet for dinner 5. Continue ensure 6. Replace potassium per protocol 7. Keep SCDs in place while in bed 8. Consult to physical therapy 9. Encourage ambulation 10. Medical management per primary medical team The impression and plan of care has been dictated as directed. I performed a history and examination of this patient, discussed the same with the dictator. I agree with the dictator's note ,documented as a scribe. Any additional findings or plans will be noted.
--- NOTE | 2023-02-16 12:56 | P.PN ---
Subjective Progress Note Date: 02/16/23 57-year-old man with medical history of hyperlipidemia, peripheral arterial disease presented for claudication of his lower extremities. He was admitted by the vascular surgery service and taken to the OR for aortobifemoral bypass, and is now postop day 2 following this procedure. Medicine was consulted for medical management by the primary service. Last night, patient had shakes, sweats, tachycardia, and was started on IV fluids. He did also spiked a low- grade fever of 100.1. Per nursing report, patient still has not had a bowel movement, has put out approximately 300 mL of NG tube output in the last 24 hours, has good urine output. She had previously been requiring a nitroglycerin drip but this was discontinued yesterday. His pain control has been treated with Dilaudid TRAY ROOM WORKER pump. He has also had intermittent nausea treated with Zofran when necessary. 02/14. Patient seen and examined. Postop day 3. Patient still has NG tube in. Still having nausea but denies any abdominal pain. Patient wants NG tube to be removed. 02/15. Patient seen and examined. NG tube was removed, currently on clear liquid diet 02/16. Patient seen and examined. postop day #5 for aortobifemoral bypass with Shel[place]-Kwabena graft and aortic thromboendarterectomy. States he feels much better. Denies abdominal pain. Patient eager to advance his diet from clear liquid. REVIEW OF SYSTEMS: CONSTITUTIONAL: No fever, no malaise,. CARDIOVASCULAR: No chest pain, no palpitations, no syncope. PULMONARY: No shortness of breath, no cough, GASTROINTESTINAL: As mentioned above NEUROLOGICAL: No headaches, no weakness, PHYSICAL EXAMINATION: GENERAL: The patient is alert and oriented x3, not in any acute distress. Well developed, well nourished. NG tube in place HEENT: Pupils are round and equally reacting to light. EOMI. No scleral icterus. No conjunctival pallor. Normocephalic, atraumatic. No pharyngeal erythema. No thyromegaly. CARDIOVASCULAR: S1 and S2 present. No murmurs, rubs, or gallops. PULMONARY: Chest is clear to auscultation, no wheezing or crackles. ABDOMEN: Soft, nontender, nondistended, normoactive bowel sounds. No palpable organomegaly. Abdominal incision seen MUSCULOSKELETAL: No joint swelling or deformity. EXTREMITIES: No cyanosis, clubbing, or pedal edema. NEUROLOGICAL: Gross neurological examination did not reveal any focal deficits. SKIN: No rashes. Assessment and plan Status post aortobifemoral bypass with Shel[place]-Kwabena graft and aortic th romboendarterectomy, postoperative day #2 Peripheral vessel occlusive disease with claudications Tobacco dependence syndrome Benign essential hypertension Dyslipidemia Generalized anxiety disorder History of nephrolithiasis requiring surgery 3 Plan; Monitor vital signs Monitor CBC Monitor CMP Aggressive bronchopulmonary hygiene Continue telemetry monitoring continue pain management per surgery Aggressive bowel regimen Continue rest of treatment for now Advanced diet to full liquid per surgery Objective - Vital Signs Vital signs: Vital Signs Temp 98.4 F 02/16/23 12:00 Pulse 71 02/16/23 12:00 Resp 18 02/16/23 12:00 BP 158/80 02/16/23 12:00 Pulse Ox 98 02/16/23 12:00 FiO2 Intake & Output 02/15/23 02/16/23 02/16/23 18:59 06:59 18:59 Intake Total 1080 120 Output Total 500 650 320 Balance 580 -650 -200 Weight 84.4 kg Intake: Oral 1080 120 Output: Urine 500 650 320 Other: Voiding Method Urinal Urinal # Voids 1 # Bowel Movements 1 ABP, PAP, CO, CI - Last Documented Arterial Blood Pressure 156/81 - Labs CBC & Chem 7: 02/16/23 07:36 02/16/23 07:36 Labs: Abnormal Lab Results - Last 24 Hours (Table) 02/16/23 02/16/23 Range/Units 07:36 07:36 WBC 11.1 H (3.8-10.6) k/uL RBC 3.82 L (4.30-5.90) m/uL Hgb 12.2 L (13.0-17.5) gm/dL Hct 35.0 L (39.0-53.0) % Sodium 136 L (137-145) mmol/L Potassium 3.1 L (3.5-5.1) mmol/L Creatinine 0.52 L (0.66-1.25) mg/dL Calcium 7.5 L (8.4-10.2) mg/dL
[2023-02-16] MEDS: ONDANSETRON 4 MG/2 ML VIAL IVP PRN (23:33)
[2023-02-16] MEDS: HYDROmorphone 0.5 MG/0.5 ML SYRINGE IVP PRN (23:34)
[2023-02-17] MEDS: ONDANSETRON 4 MG/2 ML VIAL IVP PRN ×2 (06:56→20:03)
[2023-02-17] MEDS: HYDROcodone/APAP 5-325MG 1 EACH TAB PO PRN (06:56)
[2023-02-17] MEDS: HEPARIN SODIUM,PORCINE/PF 5,000 UNIT/0.5 ML SYRINGE SQ SCH ×3 (09:02→23:42)
[2023-02-17] MEDS: polyethylene glycoL 3350 17 GM POWD.PACK PO SCH (10:49)
[2023-02-17] MEDS: SENNOSIDES-DOCUSATE SODIUM 1 EACH TAB PO SCH (10:49)
[2023-02-17] MEDS: atenoloL 25 MG TAB PO SCH (11:12)
[2023-02-17] MEDS: ASPIRIN 81 MG PO SCH (11:12)
[2023-02-17 11:52] LABS: HCT 37.9 % (39.0-53.0); HGB 12.7 gm/dL (13.0-17.5); MCH 30.3 pg (25.0-35.0); MCHC 33.5 g/dL (31.0-37.0); MCV 90.4 fL (80.0-100.0); Mean Platelet Volume 8.8; Platelet Count 168 k/uL (150-450); RBC 4.19 m/uL (4.30-5.90); WBC 10.7 k/uL (3.8-10.6)
[2023-02-17 11:55] LABS: African American GFR (CKD) >90 (>60 ml/min/1.73 sqM); Anion Gap 6 mmol/L; Blood Urea Nitrogen 11 mg/dL (9-20); Carbon Dioxide 28 mmol/L (22-30); Chloride 101 mmol/L (98-107); Glucose 126 mg/dL (74-99); Non-African American GFR(CKD) >90 (>60 ml/min/1.73 sqM); Potassium 2.9 mmol/L (3.5-5.1); Sodium 135 mmol/L (137-145)
[2023-02-17] MEDS: POTASSIUM CHLORIDE ER 20 MEQ TAB.ER PO SCH ×4 (12:48→20:03)
--- NOTE | 2023-02-17 14:41 | P.PN ---
Subjective Progress Note Date: 02/17/23 Patient is seen and examined today as a follow-up. He is postop day #6 for aortobifemoral bypass with [place]-Kwabena graft and aortic thromboendarterectomy. Yesterday patient was up and ambulating with a walker with physical therapy. He states that pain in his lower extremities is much improved. He is using oral and IV pain medication. Patient reports having a bowel movement. He was advanced to full liquid diet and then heart healthy diet and is tolerating well. States his pain is well-managed. He has been up and ambulating today. Urinating without any difficulty. WBC continues to trend down. Hemoglobin stable at 12.7 potassium is still low at 2.9 today and was replaced. Patient denies any shortness of breath, chest pain, nausea or vomiting. He does report surgical pain in the abdomen and groin. Objective - Vital Signs Vital signs: Vital Signs Temp 98 F 02/17/23 12:00 Pulse 62 02/17/23 12:00 Resp 16 02/17/23 12:00 BP 156/81 02/17/23 12:00 Pulse Ox 98 02/17/23 12:00 FiO2 Intake & Output 02/16/23 02/17/23 02/17/23 18:59 06:59 18:59 Intake Total 660 240 Output Total 320 700 Balance 340 -700 240 Intake: Oral 660 240 Output: Urine 320 700 Other: Voiding Method Urinal ABP, PAP, CO, CI - Last Documented Arterial Blood Pressure 156/81 - Exam General appearance: The patient is alert, oriented, appears in no acute distress. HET: Head is normocephalic and atraumatic. Pupils are equal and reactive. Neck: Supple. Heart: Regular. Lungs: Equal expansion, normal respiratory effort. Abdomen: Soft, nontender, nondistended, with midline ABD dressing clean dry and intact. Active bowel sounds. Extremities: Normal skin color and turgor. Bilateral groin incisions with serosanguineous drainage, left greater than right. Palpable PT pulses bilaterally. DP signals present. Feet warm to the touch, sensorimotor intact, good capillary refill. Neurological: No focal deficits. Strength and sensation are grossly intact. - Labs CBC & Chem 7: 02/17/23 10:57 02/17/23 10:57 Labs: Abnormal Lab Results - Last 24 Hours (Table) 02/17/23 02/17/23 Range/Units 10:57 10:57 WBC 10.7 H (3.8-10.6) k/uL RBC 4.19 L (4.30-5.90) m/uL Hgb 12.7 L (13.0-17.5) gm/dL Hct 37.9 L (39.0-53.0) % Sodium 135 L (137-145) mmol/L Potassium 2.9 L (3.5-5.1) mmol/L Creatinine 0.60 L (0.66-1.25) mg/dL Glucose 126 H (74-99) mg/dL Calcium 8.0 L (8.4-10.2) mg/dL Assessment and Plan Assessment: 1. Postop day #6 for aortobifemoral bypass with gore kwabena graft and aortic thromboendarterectomy 2. Aorto iliac occlusion with lifestyle omitting claudication 3. Hypokalemia 4. Tobacco abuse 5. Hypertension 6. Hyperlipidemia Plan: 1. Continue to educate and encourage use of incentive spirometer 2. Daily CBC, BMP 3. Continue oral pain medication and IV push as needed for severe breakthrough pain. 4. Continue heart healthy diet 5. Continue ensure 6. Replace potassium per protocol 7. Keep SCDs in place while in bed 8. Consult to physical therapy 9. Encourage ambulation 10. Medical management per primary medical team Anticipate discharge in the next 24 hours The impression and plan of care has been dictated as directed. I performed a history and examination of this patient, discussed the same with the dictator. I agree with the dictator's note ,documented as a scribe. Any additional findings or plans will be noted.
--- NOTE | 2023-02-17 14:58 | P.PN ---
Subjective Progress Note Date: 02/17/23 57-year-old man with medical history of hyperlipidemia, peripheral arterial disease presented for claudication of his lower extremities. He was admitted by the vascular surgery service and taken to the OR for aortobifemoral bypass, and is now postop day 2 following this procedure. Medicine was consulted for medical management by the primary service. Last night, patient had shakes, sweats, tachycardia, and was started on IV fluids. He did also spiked a low- grade fever of 100.1. Per nursing report, patient still has not had a bowel movement, has put out approximately 300 mL of NG tube output in the last 24 hours, has good urine output. She had previously been requiring a nitroglycerin drip but this was discontinued yesterday. His pain control has been treated with Dilaudid COMPUTER SYSTEMS MANAGER pump. He has also had intermittent nausea treated with Zofran when necessary. 02/14. Patient seen and examined. Postop day 3. Patient still has NG tube in. Still having nausea but denies any abdominal pain. Patient wants NG tube to be removed. 02/15. Patient seen and examined. NG tube was removed, currently on clear liquid diet 02/16. Patient seen and examined. postop day #5 for aortobifemoral bypass with [place]-Kwabena graft and aortic thromboendarterectomy. States he feels much better. Denies abdominal pain. Patient eager to advance his diet from clear liquid. 02/17. Patient seen and examined. Potassium this morning is 2.9, replacement ordered. No acute issues overnight REVIEW OF SYSTEMS: CONSTITUTIONAL: No fever, no malaise,. CARDIOVASCULAR: No chest pain, no palpitations, no syncope. PULMONARY: No shortness of breath, no cough, GASTROINTESTINAL: As mentioned above NEUROLOGICAL: No headaches, no weakness, PHYSICAL EXAMINATION: GENERAL: The patient is alert and oriented x3, not in any acute distress. Well developed, well nourished. NG tube in place HEENT: Pupils are round and equally reacting to light. EOMI. No scleral icterus. No conjunctival pallor. Normocephalic, atraumatic. No pharyngeal erythema. No thyromegaly. CARDIOVASCULAR: S1 and S2 present. No murmurs, rubs, or gallops. PULMONARY: Chest is clear to auscultation, no wheezing or crackles. ABDOMEN: Soft, nontender, nondistended, normoactive bowel sounds. No palpable organomegaly. Abdominal incision seen MUSCULOSKELETAL: No joint swelling or deformity. EXTREMITIES: No cyanosis, clubbing, or pedal edema. NEUROLOGICAL: Gross neurological examination did not reveal any focal deficits. SKIN: No rashes. Assessment and plan Status post aortobifemoral bypass with [place]-Kwabena graft and aortic thromboendarterectomy, postoperative day #2 Peripheral vessel occlusive disease with claudications Tobacco dependence syndrome Benign essential hypertension Dyslipidemia Generalized anxiety disorder History of nephrolithiasis requiring surgery 3 Plan; Monitor vital signs Monitor CBC Monitor CMP Aggressive bronchopulmonary hygiene Continue telemetry monitoring continue pain management per surgery Aggressive bowel regimen Start scheduled potassium chloride 20 mg twice a day Continue rest of treatment for now Objective - Vital Signs Vital signs: Vital Signs Temp 98 F 02/17/23 08:00 Pulse 65 02/17/23 08:00 Resp 16 02/17/23 08:00 BP 155/81 02/17/23 08:00 Pulse Ox 98 02/17/23 08:00 FiO2 Intake & Output 02/16/23 02/17/23 02/17/23 18:59 06:59 18:59 Intake Total 660 240 Output Total 320 700 Balance 340 -700 240 Intake: Oral 660 240 Output: Urine 320 700 Other: Voiding Method Urinal ABP, PAP, CO, CI - Last Documented Arterial Blood Pressure 156/81 - Labs CBC & Chem 7: 02/17/23 10:57 02/17/23 10:57
[2023-02-17] MEDS ORDERED: ATORVASTATIN 80 MG TAB PO SCH (21:00)
[2023-02-17] MEDS: HYDROmorphone 0.5 MG/0.5 ML SYRINGE IVP PRN (23:42)
[2023-02-18 05:04] VITALS: RESP 16
[2023-02-18] MEDS: ONDANSETRON 4 MG/2 ML VIAL IVP PRN (05:05)
[2023-02-18 08:16] LABS: HCT 38.2 % (39.0-53.0); HGB 12.8 gm/dL (13.0-17.5); MCH 30.3 pg (25.0-35.0); MCHC 33.5 g/dL (31.0-37.0); MCV 90.4 fL (80.0-100.0); Mean Platelet Volume 8.9; Platelet Count 211 k/uL (150-450); RBC 4.23 m/uL (4.30-5.90); RDW 13.2 % (11.5-15.5); WBC 12.9 k/uL (3.8-10.6)
[2023-02-18] MEDS: HEPARIN SODIUM,PORCINE/PF 5,000 UNIT/0.5 ML SYRINGE SQ SCH (08:24)
[2023-02-18] MEDS: POTASSIUM CHLORIDE ER 20 MEQ TAB.ER PO SCH ×3 (08:24→12:41)
[2023-02-18] MEDS: ASPIRIN 81 MG PO SCH (08:24)
[2023-02-18] MEDS: atenoloL 25 MG TAB PO SCH (08:24)
[2023-02-18 08:43] LABS: African American GFR (CKD) >90 (>60 ml/min/1.73 sqM); Anion Gap 5 mmol/L; Blood Urea Nitrogen 12 mg/dL (9-20); Calcium 8.3 mg/dL (8.4-10.2); Carbon Dioxide 28 mmol/L (22-30); Chloride 104 mmol/L (98-107); Glucose 103 mg/dL (74-99); Non-African American GFR(CKD) >90 (>60 ml/min/1.73 sqM); Potassium 3.4 mmol/L (3.5-5.1); Sodium 137 mmol/L (137-145)
[2023-02-18 08:44] VITALS: BP 152/67; PULSE 54; TEMP 98.3
[2023-02-18] MEDS ORDERED: Potassium Replacement Protocol 1 EACH MISC MISCELLANE PRN (08:45)
[2023-02-18] MEDS ORDERED: SENNOSIDES-DOCUSATE SODIUM 1 EACH TAB PO SCH (09:00)
--- NOTE | 2023-02-18 11:33 | P.DS ---
Providers Date of admission: 02/11/23 05:41 Expected date of discharge: 02/18/23 Attending physician: Katina Valdez DO Consults: 02/11/23 11:35 Consult Physician Routine Consulting Provider: Roxy Ellis Consult Reason/Comments: med mgmnt Do you want consulting provider notified?: Yes Consult Physician Routine Consulting Provider: Kita Joseph Consult Reason/Comments: icu care, med mgnmt, post op aortabifem Do you want consulting provider notified?: Yes 02/11/23 17:00 Consult Physician Routine Consulting Provider: Lucio Espinoza Consult Reason/Comments: med management Do you want consulting provider notified?: Yes Primary care physician: Stated None Hospital Course: 57-year-old male who is postop day #7 for aorto by femoral bypass with Willow-Milton graft and aortic thromboendarterectomy for aorto iliac occlusion with lifestyle limiting claudication. The patient has had some hypokalemia that has had to be corrected. He otherwise has been doing well. Good pain control. He has been up and ambulating with physical therapy using a rolling walker. The patient is on a regular diet, he is having bowel movements, passing flatus. Abdominal incision well approximated with gera without any bleeding or drainage. Bilateral groins incisions well approximated with serosanguineous drainage. He's been afebrile, he denies any nausea or vomiting, he has no chest pain or shortness of breath. Plan is for discharge home today with home care he will be going and staying with his uncle. Today's temperature 98.3 heart rate 54 respiratory rate 16 blood pressure 152/67. WBC 12.9 hemoglobin 12.8 platelet count 211,000 sodium 137 potassium 3.4 BUN 12 creatinine 0.65 General appearance: The patient is alert, oriented, appears in no acute distress. HET: Head is normocephalic and atraumatic. Pupils are equal and reactive. Neck: Supple. Heart: Regular. Lungs: Equal expansion, normal respiratory effort. Abdomen: Soft, nontender, nondistended, with midline ABD dressing clean dry and intact. Active bowel sounds. Extremities: Normal skin color and turgor. Bilateral groin incisions with serosanguineous drainage, left greater than right. Palpable PT pulses bilaterally. DP signals present. Feet warm to the touch, sensorimotor intact, good capillary refill. Neurological: No focal deficits. Strength and sensation are grossly intact. Assessment 1. Postop day #6 for aortobifemoral bypass with gore milton graft and aortic thromboendarterectomy 2. Aorto iliac occlusion with lifestyle omitting claudication 3. Hypokalemia 4. Tobacco abuse 5. Hypertension 6. Hyperlipidemia Plan Patient will be discharged home today to his uncle's house with home care to follow. Discharge instructions discussed with patient and he verbalized understanding. Patient will go home on potassium and is to follow-up with Dr. Martínez by Wednesday or Wednesday. The impression and plan of care has been dictated as directed. Dr. Valdez I performed a history and examination of this patient, discussed the same with the dictator. I agree with the dictator's note ,documented as a scribe. Any additional findings or plans will be noted. Procedures: 1.Aortobifemoral bypass with 14 x 7 mm Willow-Milton graft. 2 aortic thromboendarterectomy Patient Condition at Discharge: Stable Plan - Discharge Summary Discharge Rx Participant: No New Discharge Prescriptions: New HYDROcodone/APAP 5-325MG [Bever[place] 5-325] 1 each PO Q4HR PRN 3 Days #18 tab PRN Reason: Moderate Pain Potassium Chloride ER [K-Dur 20] 20 meq PO BID #60 tab Continue atenoloL 25 mg PO QAM Rosuvastatin Calcium 40 mg PO HS Aspirin [Adult Low Dose Aspirin EC] 81 mg PO DAILY Discharge Medication List atenoloL 25 mg PO QAM 08/22/20 [History] Aspirin [Adult Low Dose Aspirin EC] 81 mg PO DAILY 01/19/23 [History] Rosuvastatin Calcium 40 mg PO HS 01/19/23 [History] HYDROcodone/APAP 5-325MG [Beverly 5-325] 1 each PO Q4HR PRN 3 Days #18 tab 02/17/23 [Rx] Potassium Chloride ER [K-Dur 20] 20 meq PO BID #60 tab 02/18/23 [Rx] Follow up Appointment(s)/Referral(s): [facility] [NON-STAFF] - Federica Ann MD [REFERRING] - 03/01/23 9:20 am Katina Valdez DO [STAFF PHYSICIAN] - 03/03/23 11:15 am Patient Instructions/Handouts: Aortofemoral Bypass (DC) Activity/Diet/Wound Care/Special Instructions: No driving until cleared by surgeon Avoid heavy lifting greater than 5 lbs , pushing, pulling, straining, flights of stairs until cleared by surgeon ok to shower but no baths, pools, soaking in tubs to avoid risk of infection. signs of infection ie: fever, rash, drainage from incision sites, swelling contact doctor or return to ER immediately. Heavy bleeding from incision site apply firm direct pressure and return to ER. Do not attempt to drive self. low sodium/low fat diet Discharge/Stand Alone Forms: Personal Customer Service Technician, [facility] Area PCPs Discharge Disposition: HOME WITH HOME HEALTH SERVICES
== END 2023-02-18 13:42 | disposition home health service (06) | DRG 269 ==
LOC: 2ORMAIN 02-11 05:41 → 2SICU 02-11 13:29 → 3SCARD 02-13 18:38
PROVIDERS: ADMIT Surgery; ATTEND Surgery
PROC: 04C00ZZ Extirpation of Matter from Abdominal Aorta, Open Approach (ICD-10-PCS; 2023-02-11)
PROC: 3E0T3BZ Introduction of Anesthetic Agent into Peripheral Nerves and Plexi, Percutaneous Approach (ICD-10-PCS; 2023-02-11)
PROC: 04R00JZ Replacement of Abdominal Aorta with Synthetic Substitute, Open Approach (ICD-10-PCS; principal; 2023-02-11 07:30)
DX: I70.213 Atherosclerosis of native arteries of extremities with intermittent claudication, bilateral legs (principal); I74.09 Other arterial embolism and thrombosis of abdominal aorta; I10 Essential (primary) hypertension; I65.29 Occlusion and stenosis of unspecified carotid artery; F17.210 Nicotine dependence, cigarettes, uncomplicated; E78.5 Hyperlipidemia, unspecified; E87.6 Hypokalemia; R50.9 Fever, unspecified; R00.0 Tachycardia, unspecified; D72.829 Elevated white blood cell count, unspecified; F41.1 Generalized anxiety disorder; I48.91 Unspecified atrial fibrillation; Z79.82 Long term (current) use of aspirin; Z79.899 Other long term (current) drug therapy; Z82.49 Family history of ischemic heart disease and other diseases of the circulatory system
CPT/HCPCS: 64999; 71045; 80048; 80053; 83735; 84132; 85025; 85027; 86850; 86900; 86901

== ENCOUNTER → 2023-02-08 | Outpatient (CLI) | payer BC ==
[2023-02-08 17:36] LABS: INR 1.1 (<1.2); Partial Thromboplastin Time 23.4 sec (22.0-30.0); Prothrombin Time 11.8 sec (9.0-12.0)
[2023-02-09 02:39] LABS: HGB 16.5 d/dL (12.0-15.0); MCH 30.3 pg (27.0-32.0); MCHC 32.4 d/dL (32.0-37.0); MCV 93.6 FL (80.0-97.0); Mean Platelet Volume 11.3 FL (9.5-12.2); NRBC Per 100 WBC 0 X 10*3/uL (0.00-0.01); Platelet Count 192 X 10*3/uL (140-440); RBC 5.45 X 10*6/uL (4.40-5.60); RDW 13.2 % (11.5-14.5); WBC 10.85 X 10*3/uL (4.50-10.00)
[2023-02-09 02:40] LABS: Basophils # (A) 0.11 X 10*3/uL (0.00-0.10); Eosinophils # (A) 0.19 X 10*3/uL (0.04-0.35); Eosinophils % (A) 1.8 %; Lymphocytes # (A) 3.54 X 10*3/uL (0.90-5.00); Lymphocytes % (A) 32.6 %; Monocytes # (A) 0.85 X 10*3/uL (0.20-1.00); Monocytes % (A) 7.8 %; Neutrophils % (A) 56.2 %
== END | disposition home or self-care (01) ==
LOC: LABPAT 14:50
PROVIDERS: ATTEND Surgery
DX: Z01.812 Encounter for preprocedural laboratory examination (principal)
CPT/HCPCS: 36415; 85025; 85610; 85730